=== PATIENT | female | born 1985 | race Caucasian/White ===

== ENCOUNTER → 2023-04-02 13:51 | Outpatient (CLI) | payer BC, SELFPAY ==
--- NOTE | 2023-04-02 13:52 | US_ITS ---
PROCEDURE: US TRANSVAGINAL CLINICAL INDICATION: pelvic pain COMPARISON: No exams were available for comparison FINDINGS: Transvaginal sonographic images of the pelvis were obtained. UTERUS: 8cm x 5cmx 5cm with a combined endometrial thickness of 7.8mm. . There is a 10 mm nabothian cyst. There are 2 small fibroids Fibroid 1 measures 0.6 cm x 0.3 cm x 0.5 cm anterior fibroid. Fibroid 2 measures 1.1 cm by 1.7 cm x 1.3 cm fundal fibroid. LEFT OVARY: 1xoy2val8.5cm with a volume of 3.1ml.There is and 8 mm follicle. RIGHT OVARY: 3cmx [id number] with a volume of 3.3ml. There is an 11 mm dominant follicle. There are several other small follicles. Both ovaries are seen and appear normal. Doppler flow to both ovaries are seen. There is no fluid in the cul-de-sac. IMPRESSION: 1. Anteverted uterus. There are 2 small fibroids measuring 0.6 cm and 1.7 cm. 2. Both ovaries are seen and appear normal. Each have several follicles. 3. No fluid in the cul-de-sac. Dictated by: Catrachito Hess MD 04/02/2023 18:57 Catrachito Hess MD in [place] 04/02/2023 18:57
== END ==
PROVIDERS: PCP Family Medicine; Visit Provider Obstetrics & Gynecology
DX: R10.2 Pelvic and perineal pain (principal); G89.29 Other chronic pain
CPT/HCPCS: 76830

== ENCOUNTER 2024-04-29 15:50 | Outpatient (CLI) | payer BC, SELFPAY | END 2024-04-29 23:59 | disposition home or self-care (01) | LOC: LAB.DROPOF 04-30 10:04 | PROVIDERS: PCP Obstetrics & Gynecology; Visit Provider Obstetrics & Gynecology | DX: Z34.90 Encounter for supervision of normal pregnancy, unspecified, unspecified trimester (principal) | CPT/HCPCS: 87086 ==

== ENCOUNTER 2024-05-21 16:31 | Outpatient (CLI) | payer BC, SELFPAY ==
[2024-05-21 17:02] LABS: Basophils % 0.3 % (0.1-2.0); Eosinophils # 0.1 K/mm3 (0.0-0.4); Eosinophils % 0.6 % (0.1-12.0); Hematocrit 39.1 % (37.0-47.0); Hemoglobin 12.9 g/dL (12.2-16.2); Lymphocytes # 2.2 K/mm3 (0.7-4.5); Lymphocytes % 23.3 % (10-50); Mean Corpuscular HGB Conc 33.1 g/dL (31.8-35.4); Mean Corpuscular Hemoglobin 31.7 pg (27.0-31.2); Mean Corpuscular Volume 95.9 fl (81-99); Mean Platelet Volume 7.7 fl (7.4-10.4); Monocytes # 0.4 K/mm3 (0.1-1.0); Monocytes % 4.7 % (1.7-9.3); Neutrophils # 6.7 K/mm3 (1.8-7.8); Platelet Count 225 K/mm3 (142-424); Red Blood Count 4.07 M/mm3 (4.20-5.40); Red Cell Distribution Width 14.4 % (11.5-17.5); White Blood Count 9.4 K/mm3 (4.8-10.8)
[2024-05-21 18:16] LABS: Thyroid Stimulating Hormone 4.36 uIU/mL (0.465-4.68)
[2024-05-22 10:44] LABS: HIV (1&2) Antibody Rapid NONREACTIVE (NONREACTIVE)
[2024-05-23 07:12] LABS: HCV Ab Non Reactive (Non Reactive); Hepatitis B Surface Antigen Negative (Negative)
[2024-05-23 08:17] LABS: Rubella Antibodies, IgG 2.69 index (Immune >0.99)
[2024-05-23 13:17] LABS: Rapid Plasma Reagin Ab Titer Non Reactive titer (NonRea<1:1)
== END 2024-05-21 23:59 | disposition home or self-care (01) ==
LOC: LAB 16:31
PROVIDERS: PCP Family Medicine; Visit Provider Obstetrics & Gynecology
DX: Z34.90 Encounter for supervision of normal pregnancy, unspecified, unspecified trimester (principal); E03.9 Hypothyroidism, unspecified
CPT/HCPCS: 86703; 36415; 84443; 85025; 86593; 86762; 86803; 86850; 87340

== ENCOUNTER 2024-05-28 14:45 | Outpatient (CLI) | payer BC, SELFPAY ==
[2024-05-28 15:03] LABS: Basophils % 0.4 % (0.1-2.0); Eosinophils # 0.1 K/mm3 (0.0-0.4); Hematocrit 38.9 % (37.0-47.0); Hemoglobin 12.8 g/dL (12.2-16.2); Lymphocytes % 20.2 % (10-50); Mean Corpuscular HGB Conc 32.9 g/dL (31.8-35.4); Mean Corpuscular Hemoglobin 31.8 pg (27.0-31.2); Mean Corpuscular Volume 96.4 fl (81-99); Mean Platelet Volume 8.4 fl (7.4-10.4); Monocytes # 0.5 K/mm3 (0.1-1.0); Monocytes % 4.5 % (1.7-9.3); Neutrophils # 7.4 K/mm3 (1.8-7.8); Platelet Count 244 K/mm3 (142-424); Red Blood Count 4.03 M/mm3 (4.20-5.40); Red Cell Distribution Width 14.1 % (11.5-17.5)
[2024-05-28 15:41] LABS: Alanine Aminotransferase 19 U/L (12-78); Albumin Level 3.8 g/dl (3.5-5.0); Alkaline Phosphatase 60 U/L (38-126); Aspartate Amino Transferase 22 U/L (14-36); Bilirubin,Direct 0.2 mg/dl (0.0-0.4); Bilirubin,Indirect 0.1 mg/dL (0.0-0.9); Bilirubin,Total 0.3 mg/dl (0.2-1.3); Bilirubin,Unconjugated 0.1 mg/dL (0.0-1.1); Blood Urea Nitrogen 9 mg/dl (7-17); Calcium 9.1 mg/dl (8.4-10.2); Carbon Dioxide 22 mmol/L (22.0-30.0); Chloride 107 mmol/L (98-107); Chol/HDL Ratio 2.1 (1-3.5); Cholesterol 179 mg/dl (140-200); Estimated Glomerular Filt Rate 137 ml/min (>60); GFR (African American) 166 ML/MIN (>60); Glucose 97 mg/dl (74-100); HDL Cholesterol 85 mg/dl (40-60); Sodium 136 mmol/L (136-145); Total Protein,Serum 6.7 g/dl (6.3-8.2); Triglycerides 115 mg/dl (30-150); VLDL Cholesterol 23 mg/dL (0-40)
[2024-05-28 15:47] LABS: D-Dimer 0.46 ug/mL (0.0-0.5)
[2024-05-28 15:52] LABS: Direct LDL Cholesterol 76.51 mg/dL (100-129)
[2024-05-28 15:58] LABS: Free T4 (Free Thyroxine) 1.08 ng/dl (0.78-2.19)
[2024-05-28 16:12] LABS: Thyroid Stimulating Hormone 6.87 uIU/mL (0.465-4.68)
== END 2024-05-28 23:59 | disposition home or self-care (01) ==
PROVIDERS: PCP Family Medicine; Visit Provider Internal Medicine
DX: R42 Dizziness and giddiness (principal); R00.2 Palpitations; R06.09 Other forms of dyspnea; R07.89 Other chest pain; E03.9 Hypothyroidism, unspecified; O99.281 Endocrine, nutritional and metabolic diseases complicating pregnancy, first trimester; Z3A.13 13 weeks gestation of pregnancy; Z86.39 Personal history of other endocrine, nutritional and metabolic disease
CPT/HCPCS: 36415; 80048; 80061; 80076; 84439; 84443; 85025; 85378; 93270

== ENCOUNTER 2024-06-09 11:11 | Outpatient (CLI) | payer BC, SELFPAY ==
--- NOTE | 2024-06-09 11:14 | CA_ITS ---
APPROVED REPORT EXAM: Comprehensive 2D, Doppler, and color-flow Echocardiogram Industrial Custodian: Darya Echols CRT Ht: 5 ft 4 in Wt: 212lbs BSA: 2.01 BP: 121/54 mmHg Indications: 14 WKS , GERD, CP, SMOKER, PALP, SOB, FATIGUE 2D Dimensions Left Atrium 3.66 cm LVEF (Severino's) 61.50 % LVOT 1.80 cm (M/F) 1.5-2.5 LV Volume 93.40 mL LA Volume 39.30 mL LA Volume Index 19.60 mL/m2 (M/F) 16-34 EF AP4 65.60 % EF AP2 56.3 % EF BP 61.5 % GL Strain -19.9 % M-Mode Dimensions RVDd 2.20 cm (0.9-2.6) LVDd 4.84 cm (3.5-5.7) Ao Diam 3.28 cm (2.0-3.7) LVDs 2.79 cm (3.5-5.7) IVSd 1.39 cm (0.6-1.1) PWd 0.93 cm (0.6-1.1) EF (Teich) 73.30% FS 42.40% EDV (Teich) 109.60 mL TAPSE 2.67 (<1.7) ESV (Teich) 29.30 mL LV Diastology E Decel Time 258 (160-240 msec) E/A Ratio 1.13 MED E' 10.5 (>= 7 cm/sec) MED A' 10.10 cm/s E'/MED E' Ratio 8.26 (<= 14) LAT E' 14.9 (>= 10 cm/sec) LAT A' 13.00 cm/s E/LAT E' Ratio 5.82 (<= 14) Aortic Valve AoV Peak Dimas. 155.0 (50-130 cm/s) AO Peak GR. 9.60 mmHg Mitral Valve MV E Max Dimas. 87.0 (40-130 cm/s) MV A Velocity 77.0 (40-130 cm/s) E/A Ratio 1.13 MV Decel. Time 258 (160-240 ms) Tricuspid Valve TR P. Velocity 309.00 cm/s RAP Estimate 10.00 mmHg RVSP 48.20 mmHg Left Ventricle The left ventricle is normal size. The left ventricular systolic function is normal. The left ventricular ejection fraction is within the normal range. There is normal left ventricular wall thickness. There is normal LV segmental wall motion. The left ventricular diastolic function is normal. LVEF is 60%. Right Ventricle The right ventricle is normal size. The right ventricular systolic function is normal. Atria The left atrium size is normal. The right atrium size is normal. There is no Doppler evidence of interatrial shunt. Aortic Valve The aortic valve opens well. There is no aortic valvular stenosis. No aortic regurgitation. Mitral Valve The mitral valve is normal in structure. No evidence of mitral valve stenosis. Mild mitral regurgitation. Tricuspid Valve Tricuspid valve is grossly normal in structure and function. Trace tricuspid regurgitation. There is insufficient TR jet to estimate RVSP. Pulmonic Valve The pulmonary valve is normal in structure. Trace pulmonic regurgitation. Great Vessels The aortic root is normal in size. The ascending aorta is normal in size. IVC is normal in size and collapses >50% with inspiration. Pericardium There is no pericardial effusion. Other Information Study Quality: Adequate Conclusion Normal biventricular systolic function. Mild MR. Electronically signed by : Celina De La Rosa MD 06/09/2024 12:25:32
== END 2024-06-09 23:59 | disposition home or self-care (01) ==
LOC: RT 11:11
PROVIDERS: PCP Family Medicine; Visit Provider Internal Medicine
DX: R42 Dizziness and giddiness (principal); R00.2 Palpitations; R06.09 Other forms of dyspnea; R07.89 Other chest pain
CPT/HCPCS: 93306

== ENCOUNTER 2024-07-23 13:50 | Outpatient (CLI) | payer BC, SELFPAY ==
--- NOTE | 2024-07-23 13:50 | US_ITS ---
PROCEDURE: US OB /MATERNAL DETAIL CLINICAL INDICATION: 20 WEEK OB Complete-Anatomy Scan COMPARISON: No exams were available for comparison FINDINGS: Transabdominal sonographic images of the pelvis were obtained. From her established due date she is 20 weeks 4 days. Single viable intrauterine gestation. Breech position. Placenta: Anteriorplacenta grade 1. There is an average amount of fluid. The cervix appears satisfactory. Closed and measuring 6.6 cm in length. Complete survey performed and was unremarkable on the submitted images as in PACS. No discrete anomalies identified on survey imaging by technologist. Active fetus. Three-vessel cord with satisfactory umbilical cord insertion. 4- chamber heart noted. Situs, aortic arch, LVOT, RVOT, three-vessel view appear normal. Survey of brain & ventricles Unremarkable. Cerebellum, thalamus, choroid plexus, cisterna magna appear normal. Face and neck survey unremarkable. Profile, nasion, lips and nose appeared normal. Diaphragm and chest views unremarkable. Abdomen: Both kidneys noted and unremarkable. Stomach and bladder noted and satisfactory. Spine: Survey of the spine satisfactory with no anomalies identified nor imaged. Cervical, thoracic, lower spine appear normal. We had difficulty getting good spinal views due to position. Both arms and legs noted. Amniotic Fluid: Adequate. MVP 7.41 cm Measurements: Average ultrasound age 21weeks 2days. Estimated due date by ultrasound age 0312/01/2024. Estimated weight 414g BPD = 21weeks 0 days HC = 21weeks 0 days AC = 21weeks 5days FL = 21weeks 0 days Growth Percentile= 83 Heart Rate = 146bpm Cerebellum = 20weeks 1day Humerus = 22weeks 4days HC/AC is 1.12 FL/BPD is 0.71 FL/AC is 0.21 IMPRESSION: 1. Viable fetus in the breech presentation with an anterior placenta grade 1. 2. The fluid is within normal limits MVP 7.41 cm. 3. Anatomical scan appears normal. 4. Spinal views were incomplete due to position. Suggest repeat scan in 2-3 weeks. 5. biometry is consistent with dates. Dictated by: Catrachito Hess MD 07/23/2024 14:53 Catrachito Hess MD in [facility] 07/23/2024 14:53
== END 2024-07-23 23:59 | disposition home or self-care (01) ==
LOC: RAD 13:50
PROVIDERS: PCP Family Medicine; Visit Provider Obstetrics & Gynecology
DX: Z36.3 Encounter for antenatal screening for malformations (principal); O99.282 Endocrine, nutritional and metabolic diseases complicating pregnancy, second trimester; E03.9 Hypothyroidism, unspecified; Z3A.20 20 weeks gestation of pregnancy
CPT/HCPCS: 76811

== ENCOUNTER 2024-08-20 12:46 | Outpatient (CLI) | payer BC, SELFPAY ==
--- NOTE | 2024-08-20 12:47 | US_ITS ---
PROCEDURE: US OB >= 14 WEEKS FETUS CLINICAL INDICATION: incomplete spine views COMPARISON: US US OB /MATERNAL DETAIL from 07/23/2024 FINDINGS: Transabdominal sonographic images of the pelvis were obtained. The following parameters are obtained: From her established due date she is 24weeks 4days Viable fetus in the cephalic presentation with an anterior placenta grade 1. The cervix measures 4.5 cm heart rate: 146bpm bpm. BPD: 25weeks 0 days HC: 25weeks 2days AC: 26weeks 1day FL: 25weeks 4days HC/AC: 1.07 FL/BPD: 0.76 FL/AC: 0.21 Growth percentile: 88 Amniotic fluid : MVP 8.4 cm No obvious anomalies evident. profile seen, stomach, bladder, kidneys, three-vessel cord, four chamber heart appear normal. spine: Cervical, thoracic and lower spine appear normal. IMPRESSION: 1. Viable fetus in the cephalic presentation with an anterior placenta grade 1. 2. The fluid within is within normal limits . 3. Limited anatomical scan appears normal. The spine is seen today and appears normal. 4. There has been good interval growth. Dictated by: Catrachito Hess MD 08/21/2024 06:36 Catrachito Hess MD in [place] 08/21/2024 06:36
== END 2024-08-20 23:59 | disposition home or self-care (01) ==
LOC: RAD 12:47
PROVIDERS: PCP Obstetrics & Gynecology; Visit Provider Obstetrics & Gynecology
DX: Z34.92 Encounter for supervision of normal pregnancy, unspecified, second trimester (principal); Z3A.24 24 weeks gestation of pregnancy
CPT/HCPCS: 76805

== ENCOUNTER 2024-09-14 10:30 | Outpatient (CLI) | payer BC, SELFPAY | END 2024-09-14 23:59 | disposition home or self-care (01) | LOC: LAB 10:33 | PROVIDERS: PCP Family Medicine; Visit Provider Obstetrics & Gynecology | DX: O99.280 Endocrine, nutritional and metabolic diseases complicating pregnancy, unspecified trimester (principal); E03.9 Hypothyroidism, unspecified | CPT/HCPCS: 36415; 84443 ==

== ENCOUNTER 2024-09-30 14:58 | Outpatient (CLI) | payer MEDICAID, SELFPAY ==
[2024-09-30 16:30] LABS: Basophils % 0.2 % (0.1-2.0); Eosinophils # 0.2 K/mm3 (0.0-0.4); Eosinophils % 1.9 % (0.1-12.0); Hemoglobin 11.2 g/dL (12.2-16.2); Lymphocytes # 1.7 K/mm3 (0.7-4.5); Lymphocytes % 16.7 % (10-50); Mean Corpuscular HGB Conc 33.9 g/dL (31.8-35.4); Mean Corpuscular Hemoglobin 32.1 pg (27.0-31.2); Mean Corpuscular Volume 94.6 fl (81-99); Mean Platelet Volume 9.7 fl (7.4-10.4); Monocytes # 0.6 K/mm3 (0.1-1.0); Monocytes % 5.5 % (1.7-9.3); Neutrophils # 7.8 K/mm3 (1.8-7.8); Platelet Count 192 K/mm3 (142-424); Red Blood Count 3.49 M/mm3 (4.20-5.40); Red Cell Distribution Width 13.5 % (11.5-17.5); White Blood Count 10.4 K/mm3 (4.8-10.8)
[2024-09-30 16:43] LABS: Glucose 1 Hour 167 mg/dL (74-100)
[2024-09-30 17:32] LABS: Thyroid Stimulating Hormone 5.72 uIU/mL (0.465-4.68)
[2024-10-01 15:49] LABS: RPR W/RFX Titers Nonreactive (Nonreactive)
== END 2024-09-30 23:59 | disposition home or self-care (01) ==
LOC: LAB 14:59
PROVIDERS: PCP Family Medicine; Visit Provider Obstetrics & Gynecology
DX: O99.280 Endocrine, nutritional and metabolic diseases complicating pregnancy, unspecified trimester (principal); E03.9 Hypothyroidism, unspecified; Z86.39 Personal history of other endocrine, nutritional and metabolic disease
CPT/HCPCS: 36415; 82947; 84443; 85025; 86592

== ENCOUNTER 2024-10-02 09:24 | Outpatient (CLI) | payer MEDICAID, SELFPAY ==
[2024-10-02 09:58] LABS: Glucose,Fasting 98 mg/dl (74-100)
[2024-10-02 12:13] LABS: Glucose 1 Hour 195 mg/dL (74-100)
[2024-10-02 12:33] LABS: Glucose 2 Hour 185 mg/dL (74-100)
[2024-10-02 13:32] LABS: Glucose 3 Hour 55 mg/dL (74-100)
== END 2024-10-02 23:59 | disposition home or self-care (01) ==
LOC: LAB 09:26
PROVIDERS: PCP Family Medicine; Visit Provider Obstetrics & Gynecology
DX: E03.9 Hypothyroidism, unspecified (principal); O09.32 Supervision of pregnancy with insufficient antenatal care, second trimester
CPT/HCPCS: 36415; 82951

== ENCOUNTER 2024-10-07 09:02 | Outpatient (CLI) | payer MEDICAID, SELFPAY ==
--- NOTE | 2024-10-07 09:03 | US_ITS ---
PROCEDURE: US OB FOLLOW UP CLINICAL INDICATION: CHTN Hypothyroidism-US OB FU with KIMBERLY SD Ratio COMPARISON: US US OB /MATERNAL DETAIL from 07/23/2024 US US OB >= 14 WEEKS FETUS from 08/20/2024 FINDINGS: Transabdominal sonographic images of the uterus were obtained. From her established due date she is 31weeks 3days. The following parameters are obtained: Viable Fetus in the breech presentation with and anterior placenta grade 2. There appears to be a placental Cloud. Average ultrasound age is 32weeks 5days Estimated weight 2,056g Measurements: heart Rate = 142bpm BPD = 32weeks 2days, 63 percentile HC = 32weeks 6days, 49 percentile AC = 33weeks 6days, 96 percentile FL = 31weeks 3days, 36 percentile HC/AC is 1 FL/BPD is 0.75 FL/AC is 0.2 83 percentile Amniotic fluid index: 17.21cm, MVP 5.67 cm. Doppler evaluation of the umbilical artery: SD ratio: 2.09-2.13 Resistive index: 0.52 No obvious anomalies evident.Kidneys, profile, stomach, bladder, four-chamber heart, three-vessel cord appear normal. kidneys: There is 5.7 mm unilateral renal pelvis dilation. IMPRESSION: 1. Viable fetus in the breech presentation with an anterior placenta grade 2. There is a placental Cloud. 2. The fluid is within normal limits with amniotic fluid index 17.21 cm, MVP 5.67 cm. 3. There has been good interval growth with the fetus currently 83rd percentile. 4. Limited anatomical scan appears normal. 5. There is unilateral renal pelvis dilation measuring 5.7 mm. 6. SD ratio is normal 2.09-2.13. Dictated by: Catrachito Hess MD 10/07/2024 14:42 Catrachito Hess MD in [facility] 10/07/2024 14:42
== END 2024-10-07 23:59 | disposition home or self-care (01) ==
LOC: RAD 09:03
PROVIDERS: PCP Obstetrics & Gynecology; Visit Provider Obstetrics & Gynecology
DX: O09.33 Supervision of pregnancy with insufficient antenatal care, third trimester (principal); O10.913 Unspecified pre-existing hypertension complicating pregnancy, third trimester; O99.283 Endocrine, nutritional and metabolic diseases complicating pregnancy, third trimester; O99.333 Smoking (tobacco) complicating pregnancy, third trimester; O99.323 Drug use complicating pregnancy, third trimester; Z3A.33 33 weeks gestation of pregnancy; E03.9 Hypothyroidism, unspecified; F12.90 Cannabis use, unspecified, uncomplicated
CPT/HCPCS: 76816; 76820

== ENCOUNTER 2024-10-15 09:52 | Outpatient (CLI) | payer MEDICAID, SELFPAY ==
--- NOTE | 2024-10-15 09:53 | US_ITS ---
PROCEDURE: US OB BIOPHYSICAL PROFILE CLINICAL INDICATION: Gest Diabetes , Chronic Hypertension in COMPARISON: US US OB /MATERNAL DETAIL from 07/23/2024 US US OB >= 14 WEEKS FETUS from 08/20/2024 US OB FOLLOW UP from 10/07/2024 FINDINGS: Transabdominal sonographic images of the uterus were obtained. From her established due date she is 32weeks 4days. The following parameters are obtained: Viable Fetus in the cephalic presentation with an anterior placenta grade 2. The cervix measures 3.12 cm. Measurements: heart Rate = 140bpm Amniotic fluid index: 13.2cm, MVP 5.43 cm Qualitative AFV:2 Breathing movements: 2 Gross Body Movements: 2 Tone: 2 Biophysical profile score: 8 No obvious anomalies evident.Kidneys, stomach, bladder, four-chamber heart, three-vessel cord appear normal. There continues to be mild unilateral renal pelvis dilation measuring 6.1 mm. IMPRESSION: 1. Viable fetus in the cephalic presentation with an anterior placenta grade 2. 2. The fluid is within normal limits with amniotic fluid index 13.2 cm, MVP 5.43 cm. 3. Biophysical profile is 8/8 with good breathing movement and movement seen. 4. Limited anatomical scan appears normal. 5. There continues to be mild unilateral renal pelvis dilation measuring 6.1 mm today. 6. Suggest follow-up for growth, biophysical profile in 2 weeks time. Dictated by: Catrachito Hess MD 10/15/2024 15:52 Catrachito Hess MD in [place] 10/15/2024 15:52
== END 2024-10-15 23:59 | disposition home or self-care (01) ==
LOC: RAD 09:53
PROVIDERS: PCP Obstetrics & Gynecology; Visit Provider Obstetrics & Gynecology
DX: O24.415 Gestational diabetes mellitus in pregnancy, controlled by oral hypoglycemic drugs (principal); O10.913 Unspecified pre-existing hypertension complicating pregnancy, third trimester; O99.323 Drug use complicating pregnancy, third trimester; Z3A.32 32 weeks gestation of pregnancy
CPT/HCPCS: 76819

== ENCOUNTER 2024-10-22 12:52 | Outpatient (CLI) | payer MEDICAID, SELFPAY ==
--- NOTE | 2024-10-22 12:52 | US_ITS ---
PROCEDURE: US OB BIOPHYSICAL PROFILE CLINICAL INDICATION: US OB BPP with KIMBERLY Gestational diabetes, chronic hypertension COMPARISON: US US OB /MATERNAL DETAIL from 07/23/2024 US US OB >= 14 WEEKS FETUS from 08/20/2024 US US OB FOLLOW UP from 10/07/2024 US US OB BIOPHYSICAL PROFILE from 10/15/2024 FINDINGS: Transabdominal sonographic images of the uterus were obtained. From her established due date she is 33weeks 4days. The following parameters are obtained: Viable Fetus in the cephalic presentation with an anterior placenta grade 2. Measurements: heart Rate = 149bpm Amniotic fluid index: 14.62cm, MVP 5.75 cm Qualitative AFV:2 Breathing movements: 2 Gross Body Movements: 2 Tone: 2 Biophysical profile score: 8 No obvious anomalies evident.Kidneys, profile, stomach, bladder, four-chamber heart, three-vessel cord appear normal. There is unilateral renal pelvis dilation measuring 6.2 mm. IMPRESSION: 1. Viable fetus in the cephalic presentation with an anterior placenta grade 2. 2. The fluid is within normal limits with an amniotic fluid index of 14.62 cm, MVP 5.75 cm. 3. Biophysical profile is 8/8 with good breathing movement and movement seen. 4. Limited anatomical scan appears normal. 5. There continues to be unilateral renal pelvis dilation measuring 6.2 mm. Dictated by: Catrachito Hess MD 10/23/2024 09:28 Catrachito Hess MD in [place] 10/23/2024 09:28
== END 2024-10-22 23:59 | disposition home or self-care (01) ==
LOC: RAD 12:52
PROVIDERS: PCP Obstetrics & Gynecology; Visit Provider Obstetrics & Gynecology
DX: O24.415 Gestational diabetes mellitus in pregnancy, controlled by oral hypoglycemic drugs (principal); O10.913 Unspecified pre-existing hypertension complicating pregnancy, third trimester; O99.323 Drug use complicating pregnancy, third trimester; Z3A.33 33 weeks gestation of pregnancy
CPT/HCPCS: 76819

== ENCOUNTER 2024-10-30 09:52 | Outpatient (CLI) | payer MEDICAID, SELFPAY ==
--- NOTE | 2024-10-30 09:52 | US_ITS ---
PROCEDURE: US OB BIOPHYSICAL PROFILE CLINICAL INDICATION: US OB BPP with KIMBERLY COMPARISON: US US OB /MATERNAL DETAIL from 07/23/2024 US US OB >= 14 WEEKS FETUS from 08/20/2024 US US OB FOLLOW UP from 10/07/2024 US OB BIOPHYSICAL PROFILE from 10/15/2024 US OB BIOPHYSICAL PROFILE from 10/22/2024 FINDINGS: Transabdominal sonographic images of the uterus were obtained. From her established due date she is 34weeks 5days. The following parameters are obtained: Viable Fetus in the cephalic presentation with an anterior placenta grade 2. Average ultrasound age is 36weeks 6days Estimated weight 3,182g, 7 lb 0 oz Cervix measures 3.38 cm. Measurements: heart Rate = 132bpm BPD = 35weeks 4days, 74 percentile HC = 37weeks 4days, 83 percentile AC = 38weeks 4days, >98 percentile FL = 35weeks 3days, 58 percentile HC/AC is 0.95 FL/BPD is 0.78 FL/AC is 0.2 >98 percentile Amniotic fluid index: 8.84cm, MVP 3.90 cm. Qualitative AFV:2 Breathing movements: 2 Gross Body Movements: 2 Tone: 2 Biophysical profile score: 8 No obvious anomalies evident.Kidneys, bladder, stomach, four-chamber heart, three-vessel cord appear normal. There is moderate unilateral renal pelvis dilation measuring 8.6 mm. IMPRESSION: 1. Viable fetus in the cephalic presentation with an anterior placenta grade 2. 2. The fluid is within normal limits with an amniotic fluid index 8.84 cm, MVP 3.90 cm. 3. Biophysical profile is 8/8 with good breathing movement and movement seen today. 4. Fetus is currently large for gestational age >98 percentile with the abdominal circumference 4 weeks ahead. 5. Limited anatomical scan appears normal. 6. Today there is moderate unilateral renal pelvis dilation measuring 8.6 mm and this should be followed up post with the supply specialist. Dictated by: Catrachito Hess MD 10/31/2024 08:44 Catrachito Hess MD in [place] 10/31/2024 08:44
[2024-10-30 12:03] LABS: Thyroid Stimulating Hormone 0.88 uIU/mL (0.465-4.68)
== END 2024-10-30 23:59 | disposition home or self-care (01) ==
PROVIDERS: PCP Obstetrics & Gynecology; Visit Provider Obstetrics & Gynecology
DX: O24.415 Gestational diabetes mellitus in pregnancy, controlled by oral hypoglycemic drugs (principal); O99.323 Drug use complicating pregnancy, third trimester; O10.913 Unspecified pre-existing hypertension complicating pregnancy, third trimester; O99.283 Endocrine, nutritional and metabolic diseases complicating pregnancy, third trimester; Z3A.34 34 weeks gestation of pregnancy; E03.9 Hypothyroidism, unspecified; E07.9 Disorder of thyroid, unspecified
CPT/HCPCS: 36415; 76816; 76819; 84443

== ENCOUNTER 2024-11-09 09:45 | Outpatient (CLI) | payer MEDICAID, SELFPAY | END 2024-11-09 23:59 | disposition home or self-care (01) | LOC: LAB.DROPOF 11-10 16:34 | PROVIDERS: PCP Obstetrics & Gynecology; Visit Provider Obstetrics & Gynecology | DX: Z34.03 Encounter for supervision of normal first pregnancy, third trimester (principal) | CPT/HCPCS: 86403 ==

== ENCOUNTER 2024-11-12 09:00 | Outpatient (CLI) | payer MEDICAID, SELFPAY ==
--- NOTE | 2024-11-12 09:00 | US_ITS ---
PROCEDURE: US OB BIOPHYSICAL PROFILE CLINICAL INDICATION: GDM,GHTN,AMA COMPARISON: US US OB /MATERNAL DETAIL from 07/23/2024 US US OB >= 14 WEEKS FETUS from 08/20/2024 US OB FOLLOW UP from 10/07/2024 US OB BIOPHYSICAL PROFILE from 10/15/2024 US OB BIOPHYSICAL PROFILE from 10/22/2024 US OB BIOPHYSICAL PROFILE from 10/30/2024 FINDINGS: Transabdominal sonographic images of the uterus were obtained. From her established due date she is 36weeks 4days. The following parameters are obtained: Viable Fetus in the cephalic presentation with an anterior placenta grade 2. Average ultrasound age is 38weeks 0 days Estimated weight 3,576g, 7 lb 14 oz Cervix measures 4.06 cm. Measurements: heart Rate = 136bpm BPD = 36weeks 3days, 58 percentile HC = 38weeks 0 days, 54 percentile AC = 40weeks 1day, >98 percentile FL = 37weeks 1day, 61 percentile HC/AC is 0.92 FL/BPD is 0.81 FL/AC is 0.2 96 percentile Amniotic fluid index: 11.99cm, MVP 5.59 cm Qualitative AFV:2 Breathing movements: 2 Gross Body Movements: 2 Tone: 2 Biophysical profile score: 8 No obvious anomalies evident.Kidneys, profile, bladder, stomach, four-chamber heart, three-vessel cord appear normal. IMPRESSION: 1. Viable fetus in the cephalic presentation with an anterior placenta grade 2. 2. The fluid is within normal limits with an amniotic fluid index 11.99 cm, MVP 5.59 cm. 3. Biophysical profile /8 with good breathing movement and movement seen. 4. There has been good interval growth with the fetus currently 96 percentile. The abdominal circumference is greater than the 98th percentile and is 3-1/2 weeks ahead. 5. Limited anatomical scan appears normal. Dictated by: Catrachito Hess MD 11/12/2024 10:21 Catrachito Hess MD in [place] 11/12/2024 10:21
== END 2024-11-12 23:59 | disposition home or self-care (01) ==
LOC: RAD 09:00
PROVIDERS: PCP Family Medicine; Visit Provider Obstetrics & Gynecology
DX: O24.415 Gestational diabetes mellitus in pregnancy, controlled by oral hypoglycemic drugs (principal); O10.913 Unspecified pre-existing hypertension complicating pregnancy, third trimester; O32.1XX0 Maternal care for breech presentation, not applicable or unspecified; O99.323 Drug use complicating pregnancy, third trimester; Z3A.36 36 weeks gestation of pregnancy
CPT/HCPCS: 76816; 76819

== ENCOUNTER 2024-11-19 13:00 | Outpatient (CLI) | payer MEDICAID, SELFPAY ==
--- NOTE | 2024-11-19 13:01 | US_ITS ---
PROCEDURE: US OB BIOPHYSICAL PROFILE CLINICAL INDICATION: LGA/GDM COMPARISON: US US OB /MATERNAL DETAIL from 07/23/2024 US OB >= 14 WEEKS FETUS from 08/20/2024 US OB FOLLOW UP from 10/07/2024 US OB BIOPHYSICAL PROFILE from 10/15/2024 [facility] OB BIOPHYSICAL PROFILE from 10/22/2024 [facility] OB BIOPHYSICAL PROFILE from 10/30/2024 [facility] OB BIOPHYSICAL PROFILE from 11/12/2024 FINDINGS: Transabdominal sonographic images of the uterus were obtained. From her established due date she is 37weeks 4days. The following parameters are obtained: Viable Fetus in the cephalic presentation with an anterior placenta grade 2. Cervix measures 3.51 cm. Measurements: heart Rate = 136bpm Amniotic fluid index: 14.56cm, MVP 5.91 cm. Qualitative AFV:2 Breathing movements: 2 Gross Body Movements: 2 Tone: 2 Biophysical profile score: 8 No obvious anomalies evident.Kidneys, profile, stomach, bladder, four-chamber heart, three-vessel cord appear normal. IMPRESSION: 1. Viable fetus in the cephalic presentation with an anterior placenta grade 2. 2. The fluid is within normal limits with an amniotic fluid index 14.56 cm, MVP 5.91 cm. 3. Biophysical profile is 8/8 with good breathing movement and movement seen. 4. Limited anatomical scan appears normal. 5. The previously described renal pelvis dilation was not measured today. Dictated by: Catrachito Hess MD 11/19/2024 15:41 Catrachito Hess MD in [place] 11/19/2024 15:41
== END 2024-11-19 23:59 | disposition home or self-care (01) ==
LOC: RAD 13:01
PROVIDERS: Visit Provider Obstetrics & Gynecology
DX: O24.415 Gestational diabetes mellitus in pregnancy, controlled by oral hypoglycemic drugs (principal); O09.33 Supervision of pregnancy with insufficient antenatal care, third trimester; O99.323 Drug use complicating pregnancy, third trimester; O10.913 Unspecified pre-existing hypertension complicating pregnancy, third trimester; Z3A.37 37 weeks gestation of pregnancy; F12.90 Cannabis use, unspecified, uncomplicated
CPT/HCPCS: 76819

== ENCOUNTER 2024-11-22 16:08 | Inpatient (IN) | payer MEDICAID, SELFPAY ==
[2024-11-22 16:14] VITALS: BMI 37.4
[2024-11-22 16:50] VITALS: BMI 37.4
[2024-11-22 16:54] LABS: Basophils % 0.3 % (0.1-2.0); Eosinophils # 0.1 K/mm3 (0.0-0.4); Eosinophils % 1.3 % (0.1-12.0); Hemoglobin 10.9 g/dL (12.2-16.2); Lymphocytes # 1.8 K/mm3 (0.7-4.5); Lymphocytes % 19.1 % (10-50); Mean Corpuscular HGB Conc 34.1 g/dL (31.8-35.4); Mean Corpuscular Hemoglobin 31.6 pg (27.0-31.2); Mean Corpuscular Volume 92.8 fl (81-99); Monocytes # 0.6 K/mm3 (0.1-1.0); Monocytes % 6.4 % (1.7-9.3); Neutrophils # 6.9 K/mm3 (1.8-7.8); Neutrophils % 72.1 % (37.0-80.0); Platelet Count 191 K/mm3 (142-424); Red Blood Count 3.45 M/mm3 (4.20-5.40); Red Cell Distribution Width 14.1 % (11.5-17.5); White Blood Count 9.6 K/mm3 (4.8-10.8)
[2024-11-22] MEDS: miSOPROStol 100MCG TABLET 50 MCG PO (17:12)
[2024-11-22 17:15] LABS: Microscopic, Urine URINE MICROSCOPIC (MICROSCOPIC)
[2024-11-22 17:37] LABS: Glucose,Random 107 mg/dL (74-100)
[2024-11-22 18:18] LABS: Appearance,Urine Slightly Cloudy (Clear); Bilirubin,Urine Negative (Negative); Blood, Urine Negative (Negative); Color,Urine Yellow (Yellow); Glucose,Urine (UA) Negative (Negative); Ketones,Urine Negative (Negative); Leukocyte Esterase,Urine Negative (Negative); Nitrate,Urine Negative (Negative); PH,Urine 6.5 (5.0-8.5); Protein,Urine Trace (Negative); Urobilinogen,Urine 0.2 EU/dl (0.2)
[2024-11-22 18:31] LABS: Bacteria,Urine 4+ /lpf; RBC,Urine Occasional #/hpf (0-3); WBC,Urine 20-50 #/hpf (0-3)
[2024-11-22] MEDS: LACTATED RINGERS 1000ML 1,000 ML 250 ML IV (19:52)
[2024-11-22] MEDS: LABETALOL 100MG TABLET 200 MG PO (20:37)
[2024-11-22] MEDS: ONDANSETRON 4MG/2ML VIAL 4 MG IV (20:37)
[2024-11-22] MEDS: BUTORPHANOL TARTRATE 1 MG/ML VIAL IV (20:37)
[2024-11-22 21:10] LABS: Barbiturates Screen,Urine Negative ng/ml (<200)
[2024-11-22 21:11] LABS: Benzodiazepines Screen,Urine Negative ng/ml (<200)
[2024-11-22 21:12] LABS: Amphetamine/Metha Screen,Urine Negative ng/ml (<1000); Cannabinoid Screen,Urine Negative ng/ml (<50)
[2024-11-22 21:13] LABS: Cocaine Screen,Urine Negative ng/ml (<300)
[2024-11-22 21:14] LABS: Methadone Screen,Urine Negative ng/ml (<300); Opiate Screen,Urine Negative ng/ml (<300)
[2024-11-22 21:15] LABS: Phencyclidine Screen,Urine Negative ng/ml (<25)
[2024-11-22 21:18] LABS: POC Glucose,Bedside 117 (70-110)
[2024-11-23] MEDS: BUTORPHANOL TARTRATE 1 MG/ML VIAL IV (00:07)
[2024-11-23 00:58] LABS: POC Glucose,Bedside 110 (70-110)
[2024-11-23] MEDS: OXYTOCIN/RINGERS LACTATE 30 UNITS/500 ML BAG IV (05:04)
[2024-11-23] MEDS: DEXTROSE 5%-LACTATED RINGERS 1,000 ML 125 ML IV (05:05)
[2024-11-23 05:36] LABS: POC Glucose,Bedside 96 (70-110)
--- NOTE | 2024-11-23 08:56 | EXP.OB.APHP ---
OB - H&P: HPI Antepartum History of Present Illness Chief complaint: scheduled induction of labor History of present illness: Ms Fani Samaniego is a 39 yo at 38w1d who presents to [facility] L&D for scheduled induction of labor secondary to CHTN and GDMA2. is also complicated by AMA, hypothyroidism, marijuana use, tobacco use and LGA baby. She had limited care in the second trimester but good care in the third trimester. She is taking Labetalol 200 mg q 12 hours, metformin 500 mg PO BID, 10 units insulin at bedtime and levothyroxine 200 mcg daily. Last TSH 0.887 on 10/30/24. Baby is active. No vaginal bleeding or leakage of fluid. History of Present Criteria for establishing EDC:: LMP confirmed by 1st trimester US Ultrasounds: normal mid trimester US Obstetrical complications: gestational diabetes Medical complications: other (chronic hypertension, hypothyroidism) Labs Blood type: O (+) positive Rubella: immune RPR/VDRL: nonreactive GBS status: negative HBsAG: negative PFSH PFSH Disclaimer: The information contained in this section may have been updated after the patient was seen, as this information can be updated by other users. Medical History (Updated 11/23/24 @ 09:08 by Rubi Cooper DO) Category II heart rate tracing during labor and delivery Request for sterilization LGA (large for gestational age) fetus Thyroid disease affecting Gestational diabetes mellitus (GDM) controlled on oral hypoglycemic drug, antepartum Drug use complicating Chronic hypertension in Limited care in second trimester Dizziness Palpitations GERD (gastroesophageal reflux disease) Dyspnea Marijuana use during Nausea and vomiting in Tobacco use affecting , antepartum Advanced maternal age (AMA), 40 years or greater Hypothyroidism affecting Vaginal odor Anorgasmia of female Menorrhagia Dysmenorrhea Uterine fibroid Chronic pelvic pain in female Surgical History H/O dilation and curettage Family History Other Alcoholism Hypertension Kidney disease Substance abuse Thyroid disorder Social History (Updated 11/22/24 @ 16:24 by Veronica Dalton RN) Smoking Status: Current every day smoker alcohol intake: never substance use type: former substance user, opiates and painkillers current occupational status: other Travel in the last 8 weeks: None Have you lived/traveled outside US in past 30 days?: No Contact w/someone who lives/traveled outside US past 30 days?: No Exposure to someone with infectious disease in past 14 days?: No Do you have a fever (greater than 100.4 F or 38 C)?: No Have you tested positive for COVID-19: No Exposed to someone with COVID-19 in past 14 days?: No Do you have a sore throat?: No Do you have a cough?: No Do you have any weakness?: No Are you experiencing any nausea/vomitting?: No Do you have any diarrhea?: No Are you experiencing any unusual bleeding?: No Do you have any muscle aches/pain?: No Do you have any abdominal pain?: No Are you experiencing loss of taste or smell?: No Other Medical History Have you received the Flu Vaccine for this season: No Have you received the Pneumonia Vaccine: No Review of Systems Review of Systems Review of systems:: pertinent systems reviewed and negative unless documented below *Musculoskeletal Comments: + restless legs, charley horses Psychiatric Comments: + insomnia Meds Home Medications and Allergies Home Medications ?Medication ?Instructions ?Recorded ?Confirmed ?Type cholecalciferol (vitamin D3) 50 50 mcg PO DAILY 03/21/23 11/22/24 History mcg (2,000 unit) capsule vits no.130-ferrous fum 1 tab PO DAILY 04/29/24 11/22/24 History 27 mg iron-folic acid 800 mcg tablet ( Vitamin) pantoprazole 40 mg tablet,delayed 40 mg PO DAILY #90 tabs 05/28/24 11/22/24 Rx release (Protonix) albuterol sulfate 90 mcg/actuation 2 puff inhalation Q4HP PRN Wheezing 09/25/24 11/23/24 History aerosol inhaler (Ventolin HFA) blood-glucose meter (OneTouch #1 ea 10/09/24 11/22/24 History Ultra2 Meter) metformin 500 mg tablet 500 mg PO BID #60 tabs 10/09/24 11/22/24 Rx labetalol 200 mg tablet 200 mg PO Q12H #60 tabs 10/16/24 11/22/24 Rx famotidine 20 mg tablet (Pepcid) 20 mg PO DAILY #30 tabs 10/26/24 11/22/24 Rx levothyroxine 200 mcg tablet 200 mcg PO DAILY #30 tabs 10/30/24 11/22/24 Rx blood sugar diagnostic (OneTouch #100 ea 11/02/24 11/22/24 Rx Ultra Test strips) lancets #100 ea 11/02/24 11/22/24 Rx New Prescriptions to Start Prescriptions: Allergies Allergy/AdvReac Type Severity Reaction Status Date / Time No Known Allergies Allergy Verified 11/16/24 10:14 OB - H&P: Exam Constitutional no acute distress and cooperative Routine HEENT Exam Head: Present normocephalic and atraumatic Eye: Absent conjunctivae pink ENT: Present mucous membranes moist Routine Neck Exam Present full ROM Routine Respiratory Exam Present CTA bilaterally and normal respiratory effort Routine Cardiovascular Exam Present RRR Routine Abdominal Exam Present soft (Gravid); Absent tenderness or distended Routine Rectal Exam Patient deferred: visual exam Routine Exam External: Present normal urethra appearance; Absent erythema, swelling, tenderness, lesions or lacerations Routine Extremities Exam Present full ROM; Absent edema or calf tenderness Routine Neurological Exam Present alert, moving all extremities and normal speech Routine Psychiatric Exam Present normal affect and cooperative Detailed Labor and Delivery Exam Dilation (cm): 1 Effacement (%): 60 Cervix position: mid station: -4 Consistency: soft Membranes: intact Baseline heart rate: 140 monitor accelerations: Present monitor decelerations: Late watermelon harvesting supervisor variability: Average (6-10) Contraction frequency (min): 4 OB - Results Labs Labs: Short CBC 11/22/24 Range/Units 16:45 WBC 9.6 (4.8-10.8) K/mm3 Hgb 10.9 L (12.2-16.2) g/dL Hct 32.0 L (37.0-47.0) % Plt Count 191 (142-424) K/mm3 Urine 11/22/24 Range/Units 16:24 Urine Color Yellow (Yellow) Urine Appearance Slightly cloudy (Clear) Urine pH 6.5 (5.0-8.5) Ur Specific [place] 1.030 (1.005-1.030) Urine Protein Trace A (Negative) Urine Glucose (UA) Negative (Negative) OB - A/P Antepartum (1) Chronic hypertension in : Status: Acute (2) Gestational diabetes mellitus (GDM) controlled on oral hypoglycemic drug, antepartum: Status: Acute (3) Advanced maternal age (AMA), 40 years or greater: Status: Acute (4) Hypothyroidism affecting : Status: Acute (5) Tobacco use affecting , antepartum: Status: Acute (6) Marijuana use during : Status: Acute (7) LGA (large for gestational age) fetus: Status: Acute (8) Drug use complicating : Problem details: UDS positive for Alpha-hydroxyalprazolam (metabolite of Alprazolam (Xanax)) Status: Acute (9) Request for sterilization: Status: Acute (10) Category II heart rate tracing during labor and delivery: Status: Acute Additional Plan Additional Information:: Admit to [facility] for induction of labor. GBS negative She received Cytotec 50 mcg PO x 1 dose. Later doses were held secondary to category 2 heart rate tracing with occasional variable and late decelerations. Upon exam this morning cervix was 1 cm dilated and thick; could not reach internal os. Baby's head was not engaged in the pelvis. Bedside ultrasound confirmed cephalic presentation but baby was not in the pelvis. Fani elects to proceed with elective primary and permanent sterilization with bilateral salpingectomy Discussed risks, benefits, alternatives, expectations and possible complications of surgery. All questions addressed and answered. She voiced understanding of risks and possible complications. Consent form signed Proceed with elective primary
[2024-11-23 09:46] LABS: Albumin Level 3.4 g/dl (3.5-5.0); Chloride 111 mmol/L (98-107); Sodium 134 mmol/L (136-145)
[2024-11-23 09:47] LABS: Potassium 4.1 mmoL/L (3.5-5.1)
[2024-11-23 09:49] LABS: Alanine Aminotransferase 24 U/L (12-78); Albumin/Globulin Ratio 1.3 (1.1-1.8); Alkaline Phosphatase 159 U/L (38-126); Anion Gap 8.1 mEq/L (5-15); Aspartate Amino Transferase 28 U/L (14-36); Bilirubin,Total 0.2 mg/dl (0.2-1.3); Blood Urea Nitrogen 7 mg/dl (7-17); Carbon Dioxide 19 mmol/L (22.0-30.0); Creatinine Clearance Estimated 233 mL/min (50-200); Estimated Glomerular Filt Rate 137 ml/min (>60); GFR (African American) 165 ML/MIN (>60); Globulin 2.6 g/dL (1.3-3.2)
[2024-11-23] MEDS: LEVOTHYROXINE 100MCG (0.1MG) TAB 200 MCG PO (09:49)
[2024-11-23 09:50] LABS: Calcium 8.7 mg/dl (8.4-10.2); Glucose 98 mg/dl (74-100)
[2024-11-23 09:53] LABS: RPR W/RFX Titers Nonreactive (Nonreactive)
[2024-11-23] MEDS: LACTATED RINGERS 1000ML 1,000 ML 250 ML IV (11:04)
--- NOTE | 2024-11-23 12:13 | P.PNANES_ITS ---
[facility] Disclaimer: The information contained in this section may have been updated after the patient was seen, as this information can be updated by other users. Medical History (Updated 11/23/24 @ 09:08 by Rubi Cooper DO) Category II heart rate tracing during labor and delivery Request for sterilization LGA (large for gestational age) fetus Thyroid disease affecting Gestational diabetes mellitus (GDM) controlled on oral hypoglycemic drug, antepartum Drug use complicating Chronic hypertension in Limited care in second trimester Dizziness Palpitations GERD (gastroesophageal reflux disease) Dyspnea Marijuana use during Nausea and vomiting in Tobacco use affecting , antepartum Advanced maternal age (AMA), 40 years or greater Hypothyroidism affecting Vaginal odor Anorgasmia of female Menorrhagia Dysmenorrhea Uterine fibroid Chronic pelvic pain in female Surgical History H/O dilation and curettage Family History Other Alcoholism Hypertension Kidney disease Substance abuse Thyroid disorder Social History (Updated 11/22/24 @ 16:24 by Veronica Dalton RN) Smoking Status: Current every day smoker alcohol intake: never substance use type: former substance user, opiates and painkillers current occupational status: other Travel in the last 8 weeks: None Have you lived/traveled outside US in past 30 days?: No Contact w/someone who lives/traveled outside US past 30 days?: No Exposure to someone with infectious disease in past 14 days?: No Do you have a fever (greater than 100.4 F or 38 C)?: No Have you tested positive for COVID-19: No Exposed to someone with COVID-19 in past 14 days?: No Do you have a sore throat?: No Do you have a cough?: No Do you have any weakness?: No Are you experiencing any nausea/vomitting?: No Do you have any diarrhea?: No Are you experiencing any unusual bleeding?: No Do you have any muscle aches/pain?: No Do you have any abdominal pain?: No Are you experiencing loss of taste or smell?: No [facility] Anesthesia Checklist Patient Identification Patient Identification: Arm Band Structural Data Admitted From: Inpatient Planned Operative Procedure/s: Primary C/S, with BTL Consent for Planned Operative Procedure(s) Verified: Yes Verified Documents: Surgical Consent and History and Physical NPO Status Verified Time NPO: 00:00 Additional verifications Patient : Yes Anesthesia Reactions: No Airway Assessment Mallampati Score:: Class II C-Spine Mobility Assessed: Yes TMJ Mobility Assessed: Yes Dentition: Good Dentition Neurological Assessment Level of Consciousness: Awake, Alert and Appropriate Anesthesia Plan Anesthesia Risk discussed: Yes Anesthesia Plan: Verified ASA Class: II Anesthesia Type: Spinal (with Bilateral TAP Block)
--- NOTE | 2024-11-23 13:30 | P.OP_ITS ---
Date of procedure: 11/23/24 Pre-op Diagnosis:: 1. IUP at 38w1d 2. CHTN 3. GDMA2 4. Hypothyroidism in 5. AMA 6. Tobacco use 7. Marijuana use in 8. LGA baby 9. Category 2 heart tracing remote from delivery 10. Unengaged head 11. Elective c-sesarean section 12. Completed with childbearing and desires permanent sterilization Post-op Diagnosis:: 1. IUP at 38w1d 2. CHTN 3. GDMA2 4. Hypothyroidism in 5. AMA 6. Tobacco use 7. Marijuana use in 8. LGA baby 9. Category 2 heart tracing remote from delivery 10. Unengaged head 11. Elective c-sesarean section 12. Completed with childbearing and desires permanent sterilization Procedure performed:: Primary Low Transverse Section and bilateral salpingectomy Surgeon:: Rubi Cooper DO Retort Load Expediter(s):: Catrachito Hess MD POTTERY DECORATION DESIGNER:: Joshua Patino Anesthesia: spinal Estimated blood loss (mL): 600 Clinical Note:: Ms Fani Samaniego is a 39 yo at 38w1d who presents to [facility] L&D for scheduled induction of labor secondary to CHTN and GDMA2. is also complicated by AMA, hypothyroidism, marijuana use, tobacco use and LGA baby. She had limited care in the second trimester but good care in the third trimester. She is taking Labetalol 200 mg q 12 hours, metformin 500 mg PO BID, 10 units insulin at bedtime and levothyroxine 200 mcg daily. Last TSH 0.887 on 10/30/24. Baby is active. No vaginal bleeding or leakage of fluid. She received Cytotec 50 mcg PO x 1 dose. Later doses were held secondary to category 2 heart rate tracing with occasional variable and late dece lerations. Upon exam this morning cervix was 1 cm dilated and thick; could not reach internal os. Baby's head was not engaged in the pelvis. Bedside ultrasound confirmed cephalic presentation but baby was not in the pelvis. Fani elects to proceed with elective primary and permanent sterilization with bilateral salpingectomy. Discussed risks, benefits, alternatives, expectations and possible complications of surgery. All questions addressed and answered. She voiced understanding of risks and possible complications. Consent form signed. Operative findings:: 1. Live female baby, Kathy, weighing 8 lb 3 oz. AGPARs 8 (1 min), 9 (5 min) 2. Nuchal cord x 1, easily reduced 3. Uterus, bilateral fallopian tubes and bilateral ovaries grossly normal Operative note:: The risks, benefits and alternatives of the procedure were reviewed with the patient. Informed consent was obtained. Patient was taken to the operating room where spinal anesthesia was placed. The patient received 2 grams of Ancef preoperatively. Patient was placed in dorsal supine position with a leftward tilt. SCDs in place. Rodgers catheter was inserted and draining clear urine prior to the start of the procedure. heart tones were obtained. Patient was then prepped and draped in normal sterile fashion. Allis clamp test was performed to ensure adequate anesthesia. A Pfannenstiel skin incision was made 2 cm above pubic symphysis. This was carried through to underlying layer of fascia. Fascia was incised in midline, extended laterally with Ellington scissors. Superior aspect of fascial incision was grasped with two Joel clamps, elevated up, and rectus muscle dissected off bluntly and sharply with Ellington scissors. Inferior aspect of fascial incision was grasped with two Joel clamps, elevated up, and rectus muscle dissected off bluntly and sharply with Ellington scissors. The retcus muscle was then in the midline and the peritoneum was entered bluntly with a digit. Peritoneal incision was then extended superiorly and inferiorly with good visualization of the bladder. Herman retractor was inserted. The lower uterine segment was incised in a transverse fashion. Clear amniotic fluid was noted. Head was delivered without difficulty. Nuchal x 1 was easily reduced. Remainder of body was delivered without difficulty. Mouth and nares were bulb suctioned. Spontaneous cry was noted. Delayed cord clamping was performed for 60 seconds. The umbilical cord was clamped and cut. The infant was handed to awaiting pediatric staff in stable condition. Dr. Everett was present. Apgars were 8 (1 min), 9 (5 min). Cord blood was obtained. Gentle traction on the umbilical cord and uterine fundal massage delivered the placenta. Placenta was intact. Placenta will be sent to pathology for review. Uterus was cleared of all clots and debris with a moist laparotomy sponge. Corners of the uterine incision were grasped with Allis clamps. The uterine incision was reapproximated with # 1 Vicryl suture in a running, locked stitch. Second layer of the same stitch was used to imbricate the incision. Vesicouterine peritoneum was reapproximated in a running locked stitch with 2-0 Vicryl suture. Hemostasis was noted. Posterior cul-de-sac was cleaned with moist laparotomy sponge. Gutters cleared of all clots and debris with a moist laparotomy sponge. Reinspection of the lower uterine segment demonstrated hemostasis. At this point all instruments and sponges were removed from the pelvis.? The peritoneum was grasped with Tamela clamps x 3. The peritoneum was reapproximated with 0 Vicryl suture in a running stitch. The corners of the fascia were grasped with Joel clamps, and the fascia was reapproximated with two # 1 Vicryl suture overlapped to the right of midline. Subcutaneous tissue was irrigated with clear return of fluids. The subcutaneous tissue was reapproximated with 3-0 Vicryl. The skin was reapproximated with Insorb casper. Telfa was placed over closed Pfannenstiel skin incision. At the end of the procedure, the uterus was firm with minimal vaginal bleeding. Patient tolerated the procedure well. Instrument, sponges and needle counts were correct x 2. Mom and baby were transported to recovery room in stable condition. Condition: stable Disposition: floor Specimens:: 1. Placenta and umbilical cord 2. Cord blood 3. Bilateral fallopian tubes Complications:: None
[2024-11-23 13:40] VITALS: BP 117/68; PULSE 67; RESP 18; TEMP 36.7; O2SAT 99
[2024-11-23 13:50] VITALS: BP 119/66; PULSE 71; RESP 18; TEMP 36.7; O2SAT 99
--- NOTE | 2024-11-23 13:52 | EXP.ANES.I ---
[facility] Anesthesia Record Part I Anesthesia Record I Intake, IV Amount: 1,550 Hydration: Adequate Estimated blood loss (mL): 300 Urine output (mL): 100 Blood Products used (#): none Blood Pressure: 117/68 SaO2: 97 Pulse Rate: 70 Airway Patency: Patent Respiratory Rate: 16 Temperature: 98 F Patient is:: Awake and Stable Stable to PACU at:: 13:46
[2024-11-23 13:55] VITALS: BP 117/68; PULSE 70; RESP 16; TEMP 36.6; O2SAT 97
[2024-11-23 14:00] VITALS: BP 115/67; PULSE 72; RESP 18; TEMP 36.7; O2SAT 99
[2024-11-23 14:10] VITALS: BP 119/64; PULSE 81; RESP 18; TEMP 36.7; O2SAT 99
[2024-11-23] MEDS: OXYTOCIN/RINGERS LACTATE 30 UNITS/500 ML BAG 40 UNITS IV (14:15)
[2024-11-23 14:54] LABS: Microscopic,Cath URINE MICROSCOPIC (MICROSCOPIC)
[2024-11-23] MEDS: ACETAMINOPHEN 500MG TAB 1000 MG PO ×2 (15:12→20:28)
[2024-11-23] MEDS: KETOROLAC 30MG/ML VIAL 30 MG IV ×2 (15:13→21:10)
[2024-11-23] MEDS: OXYCODONE 5MG IMMEDIATE RELEASE TABLET 5 MG PO (15:51)
[2024-11-23 15:52] LABS: Appearance,Urine/Cath Cloudy (Clear); Bilirubin,Cath Negative (Negative); Blood, Urine/Cath Negative (Negative); Color,Urine/Cath Yellow (Yellow); Glucose,Urine/Cath (UA) Negative (Negative); Ketones,Urine/Cath Negative (Negative); Leukocyte Esterase,Cath Negative (Negative); Nitrate,Cath Negative (Negative); Protein,Urine/Cath Negative (Negative); Urobilinogen,Cath 0.2 EU/dl (0.2); WBC,Urine/Cath Occasional #/hpf (0-3)
[2024-11-23] MEDS: HYDROMORPHONE 2MG/ML SYRINGE 1 MG IV ×2 (18:33→21:10)
[2024-11-23 20:03] VITALS: BP 108/55; PULSE 74; RESP 18; TEMP 36.7; O2SAT 97
[2024-11-23] MEDS: CEFAZOLIN SODIUM 2 GM in 0.9 % SODIUM CHLORIDE 100 ML IV (20:28)
[2024-11-23] MEDS: SIMETHICONE 80MG CHEWABLE TABLET 160 MG PO (21:10)
[2024-11-24] MEDS: HYDROMORPHONE 2MG/ML SYRINGE 1 MG IV ×2 (01:33→04:29)
[2024-11-24] MEDS: ACETAMINOPHEN 500MG TAB 1000 MG PO ×4 (01:34→23:28)
[2024-11-24 04:01] VITALS: BP 111/59; PULSE 76; RESP 16; TEMP 36.5; O2SAT 98
[2024-11-24] MEDS: KETOROLAC 30MG/ML VIAL 30 MG IV (04:04)
[2024-11-24] MEDS: CEFAZOLIN SODIUM 2 GM in 0.9 % SODIUM CHLORIDE 100 ML IV (04:04)
[2024-11-24] MEDS: LEVOTHYROXINE 100MCG (0.1MG) TAB 200 MCG PO (06:28)
[2024-11-24 06:30] LABS: Basophils % 0.2 % (0.1-2.0); Eosinophils # 0.1 K/mm3 (0.0-0.4); Eosinophils % 1.2 % (0.1-12.0); Hematocrit 28.1 % (37.0-47.0); Hemoglobin 9.4 g/dL (12.2-16.2); Lymphocytes # 1.6 K/mm3 (0.7-4.5); Lymphocytes % 15.4 % (10-50); Mean Corpuscular HGB Conc 33.5 g/dL (31.8-35.4); Mean Corpuscular Hemoglobin 31.3 pg (27.0-31.2); Mean Corpuscular Volume 93.7 fl (81-99); Mean Platelet Volume 10.2 fl (7.4-10.4); Monocytes # 0.6 K/mm3 (0.1-1.0); Monocytes % 5.9 % (1.7-9.3); Neutrophils % 76.6 % (37.0-80.0); Platelet Count 143 K/mm3 (142-424); White Blood Count 10.4 K/mm3 (4.8-10.8)
[2024-11-24 06:58] LABS: Glucose,Fasting 102 mg/dl (74-100)
[2024-11-24] MEDS: OXYCODONE 5MG IMMEDIATE RELEASE TABLET 5 MG PO ×4 (07:49→19:44)
[2024-11-24] MEDS: IRON SUCROSE COMPLEX 200 MG in 0.9 % SODIUM CHLORIDE 100 ML 220 MG IV (09:27)
[2024-11-24 09:33] VITALS: BP 119/64; PULSE 81; RESP 18; TEMP 36.6; O2SAT 99
--- NOTE | 2024-11-24 09:33 | P.PNANES_ITS ---
[facility] Anesthesia Record Part II Anesthesia Record Part II Discharge Time: 14:10 Destination: Obstetric PACU nurse assessment reviewed?: Yes Patient Condition:: Good Anesthesia Complications:: None Swallowing reflex intact?: Yes Airway Patency: Patent Cyanosis?: No Blood Pressure: 119/64 SaO2: 99 Respiratory Rate: 18 Pulse Rate: 81 Temperature: 98 F Mental Status: Alert & Oriented Pain level:: 0 Nausea and/or vomitting:: None Intake, IV Amount: 0 Hydration: Adequate
--- NOTE | 2024-11-24 09:55 | SW/DCPLANNER ---
Addendum entered by Prerna Ruth 11/27/24 07:27: Infant cord screen is negative. Original Note: I received a consult for this patient regarding THC early and positive for Xanax in September. Patient tested positive for THC at initial visit 04/30/24. Patient stated no further THC use since first visit. Patient did test positive for Xanax on 09/26/2024. Patient admits to using Xanax in September to assist w/ sleeping and this was a one time use. Patient and infant urine drug screens were negative at admission. Patient stated that she did go to rehab for alcohol in 2020 ([facility] in [place]). Patient delivered infant female (Kathy Samaniego) on 11/23/2024. Per patient 's father (Dinesh Jeffers 12/07/1986) is involved. Patient does have two other children w/ no past Social Service involvement. Patient and three children will reside at [address] [place] [address] in [place] [address]. Patient's contact number is [phone]. Patient is currently established w/ WIC and has the following items at home crib, car seat, clothing, diapers and will be bottle feeding. PED MD will be Dr Everett for initial visit but does plan to switch to [place] afterwards. Patient confirmed she will have transportation to all follow up appointments. Nursing staff noted some concern regarding patient's amount of interaction w/ but will follow up w/ me today if further concerns are noted. Patient's sister was completing most care for but did leave hospital today. Patient and infant are expected to discharge home tomorrow 11/25/2024 pending no setbacks.
[2024-11-24] MEDS: IBUPROFEN 400 MG TABLET 800 MG PO ×2 (11:34→19:44)
--- NOTE | 2024-11-24 13:11 | EXP.ACUTE.PN ---
Subjective *Date: 11/24/24 *Time: 13:11 Interval history: POD # 1 s/p PLTCS Feeling okay. Pain not well controlled. Formula feeding. Lochia is appropriate. Voiding without difficulty and passing flatus. Tolerating regular diet. Denies fever/chills, chest pain and shortness of breath. No headaches, vision changes, lightheadedness/dizziness. No lower extremity swelling. Ambulating well ad lisandra. Medical Exam Vital signs and Labs for Last 24 Hours: Vital Signs Temp Pulse Pulse Pulse Resp BP BP 11/24/24 09:33 18 11/24/24 04:01 97.7 F 76 16 111/59 L 11/23/24 20:03 98.0 F 74 18 108/55 L 11/23/24 14:10 98.0 F 81 18 119/64 11/23/24 14:00 98.0 F 72 18 115/67 11/23/24 13:55 98 F 70 16 117/68 11/23/24 13:50 98.0 F 71 18 119/66 11/23/24 13:40 98.0 F 67 18 117/68 Pulse Ox O2 Del Method 11/24/24 09:33 11/24/24 04:01 98 Room Air 11/23/24 20:03 97 Room Air 11/23/24 14:10 99 Room Air 11/23/24 14:00 99 Room Air 11/23/24 13:55 11/23/24 13:50 99 Room Air 11/23/24 13:40 99 Room Air Intake and Output 11/23/24 11/24/24 11/24/24 23:59 07:59 15:59 Intake Total 0 / 0 Output Total 1300 / 1300 Balance -1300 / 250 0 / 0 Intake: Intake, Total IV Amount 0 / 0 Output: Output, Urine Amount 200 / 200 Output, Urine Amount (Catheter) 1100 / 1100 Rodgers 1100 / 1100 Laboratory Results - last 24 hr 11/23/24 12:20: Urine Color Yellow, Urine Appearance Cloudy, Urine pH 7.0, Ur Specific [place] 1.020, Urine Protein Negative, Urine Glucose (UA) Negative, Urine Ketones Negative, Urine Blood Negative, Urine Nitrate Negative, Urine Bilirubin Negative, Urine Urobilinogen 0.2, Ur Leukocyte Esterase Negative, Urine RBC None, Urine WBC Occasional, Ur Squamous Epith Cells 3-5, Urine Bacteria None 11/24/24 06:14: WBC 10.4, RBC 3.00 L, Hgb 9.4 L, Hct 28.1 L, MCV 93.7, MCH 31.3 H, MCHC 33.5, RDW 14.0, Plt Count 143 D, MPV 10.2, Neut % (Auto) 76.6, Lymph % (Auto) 15.4, [place] % (Auto) 5.9, Eos % (Auto) 1.2, Baso % (Auto) 0.2, Neut # (Auto) 8.0 H, Lymph # (Auto) 1.6, [place] # (Auto) 0.6, Eos # (Auto) 0.1, Baso # (Auto) 0.0, Fasting Glucose 102 H I & O for Labs for Last 24 Hours: Intake & Output 11/21/24 11/23/24 11/23/24 11/24/24 23:59 00:59 23:59 23:59 Intake Total 1550 / 1550 0 / 0 Output Total 1300 / 1300 Balance 250 / 250 0 / 0 Weight 218 lb Head: Present atraumatic and normocephalic ENT: Present normal exam Neck: Present full ROM Respiratory: Present CTA bilaterally and normal respiratory effort Cardiac: Present Reg Rate and Rhythm GI: Present soft, tenderness (mild appropriate postop tenderness to palpation) and normal bowel sounds; Absent distention or guarding Comments:: Pfannenstiel incision clean/dry/intact with steri strips in place Rectal (female): Present deferred (female): Present deferred Extremities: Present full ROM and edema (+2 bilateral lower extremity edema); Absent calf tenderness Neuro: Present alert, awake and moves all extremities Assessment and Plan *Assessment and plan (1) S/P : Status: Acute Category: Surgical Code(s): Z98.891 - History of uterine scar from previous surgery (2) Category II heart rate tracing during labor and delivery: Status: Acute Category: Medical Code(s): O76 - Abnormality in heart rate and rhythm complicating labor and delivery (3) Chronic hypertension in : Status: Acute Category: Medical Code(s): O10.919 - Unspecified pre-existing hypertension complicating , unspecified trimester (4) Gestational diabetes mellitus (GDM) controlled on oral hypoglycemic drug, antepartum: Status: Acute Category: Medical Code(s): O24.415 - Gestational diabetes mellitus in , controlled by oral hypoglycemic drugs (5) Drug use complicating : Problem Comment: UDS positive for Alpha-hydroxyalprazolam (metabolite of Alprazolam (Xanax)) Status: Acute Qualifiers: Trimester: third trimester Qualified Code(s): O99.323 - Drug use complicating , third trimester Category: Medical Code(s): O99.320 - Drug use complicating , unspecified trimester (6) LGA (large for gestational age) fetus: Status: Acute Category: Medical (7) Request for sterilization: Status: Acute Category: Medical Code(s): Z30.2 - Encounter for sterilization (8) Tobacco use affecting , antepartum: Status: Acute Category: Medical Code(s): O99.330 - Smoking (tobacco) complicating , unspecified trimester (9) Advanced maternal age (AMA), 40 years or greater: Status: Acute Category: Medical (10) Hypothyroidism affecting : Status: Acute Qualifiers: Trimester: third trimester Qualified Code(s): O99.283 - Endocrine, nutritional and metabolic diseases complicating , third trimester; E03.9 - Hypothyroidism, unspecified Category: Medical Code(s): O99.280 - Endocrine, nutritional and metabolic diseases complicating , unspecified trimester; E03.9 - Hypothyroidism, unspecified (11) Acute blood loss anemia: Status: Acute Category: Medical Code(s): D62 - Acute posthemorrhagic anemia Plan Continue routine care Encouraged increased ambulation Venofer 200 mg IV x 1 dose Plan d/c home POD # 2 or POD # 3
[2024-11-24] MEDS: SIMETHICONE 80MG CHEWABLE TABLET 160 MG PO (19:44)
[2024-11-24] MEDS: PRENATAL MULTIVITAMIN W/IRON 1 EACH PO (19:44)
[2024-11-24] MEDS: SENNA 8.6MG TABLET 8.6 MG PO (19:44)
[2024-11-25] MEDS: IBUPROFEN 400 MG TABLET 800 MG PO (04:26)
[2024-11-25] MEDS: OXYCODONE 5MG IMMEDIATE RELEASE TABLET 5 MG PO ×2 (04:26→08:07)
[2024-11-25] MEDS: ACETAMINOPHEN 500MG TAB 1000 MG PO (08:06)
[2024-11-25] MEDS: LEVOTHYROXINE 100MCG (0.1MG) TAB 200 MCG PO (08:07)
[2024-11-25] MEDS: LABETALOL 100MG TABLET 200 MG PO (08:07)
--- NOTE | 2024-11-25 11:04 | EXP.DC.SUM ---
General Admission date:: 11/22/24 Discharge date: 11/25/24 HPI HPI HPI: POD # 2 s/p PLTCS Feeling well. Pain well controlled. Formula feeding. Lochia is light. Voiding without difficulty and passing flatus. Tolerating regular diet. Denies fever/chills, chest pain and shortness of breath. No headaches, vision changes, lightheadedness/dizziness. She admits to bilateral lower extremity swelling. No calf pain. Ambulating well ad lisandra. Hospital Course Hospital Course Hospital Course: Ms Fani Samaniego is a 39 yo at 38w1d who presents to [facility] L&D for scheduled induction of labor secondary to CHTN and GDMA2. is also complicated by AMA, hypothyroidism, marijuana use, tobacco use and LGA baby. She had limited care in the second trimester but good care in the third trimester. She is taking Labetalol 200 mg q 12 hours, metformin 500 mg PO BID, 10 units insulin at bedtime and levothyroxine 200 mcg daily. Last TSH 0.887 on 10/30/24. Baby is active. No vaginal bleeding or leakage of fluid. Ms Fani Samaniego is a 39 yo at 38w1d who presents to [facility] L&D for scheduled induction of labor secondary to CHTN and GDMA2. is also complicated by AMA, hypothyroidism, marijuana use, tobacco use and LGA baby. She had limited care in the second trimester but good care in the third trimester. She is taking Labetalol 200 mg q 12 hours, metformin 500 mg PO BID, 10 units insulin at bedtime and levothyroxine 200 mcg daily. Last TSH 0.887 on 10/30/24. Baby is active. No vaginal bleeding or leakage of fluid. She received Cytotec 50 mcg PO x 1 dose. Later doses were held secondary to category 2 heart rate tracing with occasional variable and late decelerations. Upon exam this morning cervix was 1 cm dilated and thick; could not reach internal os. Baby's head was not engaged in the pelvis. Bedside ultrasound confirmed cephalic presentation but baby was not in the pelvis. Fani elects to proceed with elective primary and permanent sterilization with bilateral salpingectomy. She underwent primary on 11/23/24. She delivered a live female baby, Kathy, weighing 8 lb 3 oz. AGPARs 8 (1 min), 9 (5 min). EBL 600 mL. She did well /postoperatively. Pain controlled. Formula feeding. Light lochia. Voiding without difficulty and passing flatus. Tolerating regular diet. Denies fever/chills, chest pain and shortness of breath. No headaches, dizziness/lightheadedness or vision changes. POD # 1 Hgb was 9.4. She received Venofer 200 mg IV x 1 dose. Vital signs stable, afebrile. Heart regular rate and rhythm. Lungs clear to auscultation. Abdomen soft, nontender. She had +2 bilateral lower extremity swelling. No calf tenderness to palpation. Ambulating well ad lisandra. Normal hospital course. She was discharged to home on POD # 2 with instructions to follow-up in the office 5 days for BP check and postop visit or sooner if needed. She was instructed to continue Labetalol 200 mg PO q 12 hours when she goes home. Exam Data for Last 24 hours Vital signs and Labs for Last 24 Hours: Temp Pulse Resp BP Pulse Ox O2 Del Method 97.7 F 76 18 111/59 L 98 Room Air 11/24/24 04:01 11/24/24 04:01 11/24/24 09:33 11/24/24 04:01 11/24/24 04:01 11/24/24 04:01 I & O for Last 24 hours: Intake & Output 11/23/24 11/23/24 11/24/24 11/25/24 00:59 23:59 23:59 23:59 Intake Total 1550 / 1550 0 / 0 Output Total 1300 / 1300 Balance 250 / 250 0 / 0 Weight 218 lb Microbiology Reports for the Last 24 Hours: Microbiology 11/22/24 16:24 Urine,Clean Catch Urine Culture - Final No growth. Constitutional Constitutional: no acute distress and cooperative *Routine HEENT Exam Head: Present normocephalic and atraumatic Eye: Absent conjunctivae pink ENT: Present mucous membranes moist *Routine Neck Exam Neck: Present full ROM *Routine Respiratory Exam Respiratory: Present CTA bilaterally and normal respiratory effort *Routine Cardiovascular Exam Cardiovascular: Present RRR *Routine Abdominal Exam Abdominal: Present soft; Absent tenderness or distended Comments: Pfannenstiel incision clean/dry/intact with steri strips in place *Routine Rectal Exam Patient deferred: visual exam *Routine Exam Patient deferred: external exam *Routine Extremities Exam Extremities: Present edema (+2 bilateral lower extremity swelling) and full ROM; Absent calf tenderness *Routine Neurological Exam Neurological: Present alert, moving all extremities and normal speech Routine Psychiatric Exam Psychiatric: Present normal affect and cooperative DS: Diagnosis Discharge Diagnosis (1) S/P : Status: Acute Code(s): Z98.891 - History of uterine scar from previous surgery (2) Category II heart rate tracing during labor and delivery: Status: Acute Code(s): O76 - Abnormality in heart rate and rhythm complicating labor and delivery (3) Chronic hypertension in : Status: Acute Code(s): O10.919 - Unspecified pre-existing hypertension complicating , unspecified trimester (4) Gestational diabetes mellitus (GDM) controlled on oral hypoglycemic drug, antepartum: Status: Acute Code(s): O24.415 - Gestational diabetes mellitus in , controlled by oral hypoglycemic drugs (5) Drug use complicating : Status: Acute Code(s): O99.320 - Drug use complicating , unspecified trimester Qualifiers: Trimester: third trimester Qualified Code(s): O99.323 - Drug use complicating , third trimester Problem details: UDS positive for Alpha-hydroxyalprazolam (metabolite of Alprazolam (Xanax)) (6) LGA (large for gestational age) fetus: Status: Acute (7) Request for sterilization: Status: Acute Code(s): Z30.2 - Encounter for sterilization (8) Tobacco use affecting , antepartum: Status: Acute Code(s): O99.330 - Smoking (tobacco) complicating , unspecified trimester (9) Advanced maternal age (AMA), 40 years or greater: Status: Acute (10) Hypothyroidism affecting : Status: Acute Code(s): O99.280 - Endocrine, nutritional and metabolic diseases complicating , unspecified trimester; E03.9 - Hypothyroidism, unspecified Qualifiers: Trimester: third trimester Qualified Code(s): O99.283 - Endocrine, nutritional and metabolic diseases complicating , third trimester; E03.9 - Hypothyroidism, unspecified (11) Acute blood loss anemia: Status: Acute Code(s): D62 - Acute posthemorrhagic anemia Meds Home Medications and Allergies Home Medications ?Medication ?Instructions ?Recorded ?Confirmed ?Type cholecalciferol (vitamin D3) 50 50 mcg PO DAILY 03/21/23 11/22/24 History mcg (2,000 unit) capsule vits no.130-ferrous fum 1 tab PO DAILY 04/29/24 11/22/24 History 27 mg iron-folic acid 800 mcg tablet ( Vitamin) albuterol sulfate 90 mcg/actuation 2 puff inhalation Q4HP PRN Wheezing 09/25/24 11/23/24 History aerosol inhaler (Ventolin HFA) labetalol 200 mg tablet 200 mg PO Q12H #60 tabs 10/16/24 11/22/24 Rx famotidine 20 mg tablet (Pepcid) 20 mg PO DAILY #30 tabs 10/26/24 11/22/24 Rx levothyroxine 200 mcg tablet 200 mcg PO DAILY #30 tabs 10/30/24 11/22/24 Rx ibuprofen 800 mg tablet 800 mg PO Q8H PRN pain #20 tabs 11/25/24 Rx oxycodone 5 mg tablet 5 mg PO Q4HP PRN Moderate Pain 11/25/24 Rx (4-6) #20 tabs New Prescriptions to Start Prescriptions: ibuprofen Rubi Cooper oxycodone Rubi Cooper Allergies Allergy/AdvReac Type Severity Reaction Status Date / Time No Known Allergies Allergy Verified 11/16/24 10:14 Discharge Plan Disposition Patient Disposition: Home, Self-Care Condition: Good Discharge Order Discharge Orders: Discharge Order (Routine); Ordered 11/25/24 Ordered By: Rubi Cooper Follow up Plan Follow up with: Rubi Cooper DO [Staff Physician] - 12/07/24 3:00 pm (Follow-up on Saturday11/30/24 for postop visit and BP check) Prescriptions/Medication Reconciliation: New oxycodone 5 mg Tablet 5 mg PO Q4HP PRN (Reason: Moderate Pain (4-6)) Qty: 20 0RF ibuprofen 800 mg tablet 800 mg PO Q8H PRN (Reason: pain) Qty: 20 0RF Continued cholecalciferol (vitamin D3) 50 mcg (2,000 unit) capsule 50 mcg PO DAILY albuterol sulfate [Ventolin HFA] 90 mcg/actuation HFA aerosol inhaler 2 puff inhalation Q4HP PRN (Reason: Wheezing) Patient Comments: INHALE 2 PUFFS BY MOUTH EVERY 4 HOURS NEEDED FOR WHEEZING Vitamin 27 mg iron- 800 mcg tablet 1 tab PO DAILY Patient Comments: TAKE 1 TABLET BY MOUTH ONCE DAILY famotidine [Pepcid] 20 mg tablet 20 mg PO DAILY Qty: 30 3RF labetalol 200 mg tablet 200 mg PO Q12H Qty: 60 2RF levothyroxine 200 mcg tablet 200 mcg PO DAILY Qty: 30 1RF Discontinued pantoprazole [Protonix] 40 mg tablet,delayed release (DR/EC) 40 mg PO DAILY Qty: 90 3RF (DME) OneTouch Ultra Test Strip See Rx Instructions .ROUTE .MEDSUPPLY Qty: 100 1RF Rx Instructions: As directed (DME) lancets Misc See Rx Instructions .Route Qty: 100 1RF Rx Instructions: 4x daily (DME) blood-glucose meter [OneTouch Ultra2 Meter] Misc See Rx Instructions .ROUTE .MEDSUPPLY Qty: 1 Rx Instructions: As directed metformin 500 mg tablet 500 mg PO BID Qty: 60 3RF Problem Reconciliation Problems Reviewed?: Yes Patient Discharge Instructions ACTIVITY: Limited activity DIET: regular diet Additional Instructions: Follow up with Dr. Cooper for a blood pressure check on Saturday11/30/24 @ 10:30 am. Congratulations!! Discharge: 1. Take 800 mg Ibuprofen every 8 hours as needed for pain. You can also take 500-1000 mg of Tylenol in between doses, every 6-8 hours. 2. Nothing in the vagina for 6 weeks - no intercourse, douching or tampons. No tub baths/hot tubs or swimming pools 3. No lifting anything heavier than baby in pumpkin seat for 6 weeks 4. Reasons to return to L&D or call On-Call doctor - fever (greater than 100.4) - heavy vaginal bleeding (soaking through 1 pad in less than 2 hours) - vaginal discharge (malodorous and/or purulent) - severe headaches not resolved by medication or rest and leg tenderness/edema 4. depression/blues - Normal to feel anxious/overwhelmed for first 2 weeks - Talk to your doctor if: severe anxiety, trouble bonding with baby, withdrawing from other family members, thoughts of harming yourself or others Rubi Cooper DO [facility] [place] [phone] Patient Instructions: Depression, Hemorrhage, DI for , DI for Pre-eclampsia Print Language: Ukrainian Providers Primary Care Provider: Jim Hung Admit Provider: Rubi Cooper Attending Provider: Rubi Cooper
== END 2024-11-25 13:30 | disposition home or self-care (01) | DRG 784 ==
PROVIDERS: Nurse Practitioner Obstetrics & Gynecology; Admitting Provider Obstetrics & Gynecology; PCP Family Medicine; Visit Provider Obstetrics & Gynecology
PROC: 0UL70ZZ Occlusion of Bilateral Fallopian Tubes, Open Approach (ICD-10-PCS; CPT 59514; principal; 2024-11-23 12:00)
DX: O76 Abnormality in fetal heart rate and rhythm complicating labor and delivery (principal); D62 Acute posthemorrhagic anemia; O10.02 Pre-existing essential hypertension complicating childbirth; O99.284 Endocrine, nutritional and metabolic diseases complicating childbirth; O24.424 Gestational diabetes mellitus in childbirth, insulin controlled; Z3A.38 38 weeks gestation of pregnancy; Z37.0 Single live birth; O99.334 Smoking (tobacco) complicating childbirth; F17.210 Nicotine dependence, cigarettes, uncomplicated; O32.4XX0 Maternal care for high head at term, not applicable or unspecified; E03.9 Hypothyroidism, unspecified; Z30.2 Encounter for sterilization; O69.81X0 Labor and delivery complicated by cord around neck, without compression, not applicable or unspecified; O90.81 Anemia of the puerperium; K21.9 Gastro-esophageal reflux disease without esophagitis; F12.90 Cannabis use, unspecified, uncomplicated; O99.320 Drug use complicating pregnancy, unspecified trimester
CPT/HCPCS: 36415; 59025; 80053; 80307; 81001; 82947; 82962; 85025; 86592; 86850; 87086; 88302; 88307; 94761; 96374; G0283; J0595; J0666; J1171; J1200; J1756; J1885; J2405; J3010; J7120

== ENCOUNTER 2025-01-06 08:19 | Outpatient (CLI) | payer MEDICAID, SELFPAY ==
[2025-01-06 09:02] LABS: Glucose,Fasting 106 mg/dl (74-100)
[2025-01-06 10:01] LABS: Glucose 1 Hour 123 mg/dL (74-100)
[2025-01-06 10:10] LABS: Thyroid Stimulating Hormone 0.02 uIU/mL (0.465-4.68)
[2025-01-06 11:15] LABS: Glucose 2 Hour 54 mg/dL (74-100)
== END 2025-01-06 23:59 | disposition home or self-care (01) ==
LOC: LAB 08:19
PROVIDERS: PCP Family Medicine; Visit Provider Obstetrics & Gynecology
DX: E03.9 Hypothyroidism, unspecified (principal); O24.419 Gestational diabetes mellitus in pregnancy, unspecified control
CPT/HCPCS: 36415; 82951; 84443

== ENCOUNTER 2025-05-11 13:04 | Outpatient (CLI) | payer MEDICAID, SELFPAY ==
--- OUTSIDE RECORDS SUMMARY | 2025-05-07 10:00 | XMS_ITS | Encounter Summary ---
[facility] Organization [facility] Address [address] [place] [address] Care Team Providers Care Senior Paralegal Name Role Phone Jim Hung MD Primary Care Provider [phone] Reason for Referral * Diagnostic Imaging (Routine) - Authorized Specialty Diagnoses / Procedures Referred By Contac t Referred To Contact Radiology Diagnoses Screening mammogram for breast cancer Procedures Mammo Screening Digital Tomosynthesis Bilateral With CAD Jim Hung MD [address] [facility] [place] [address] Phone: tel: fax: [facility] [address] [place] [address] Phone: tel: Referral ID Status Reason Start Date Expiration Date V isits Requested Visits Authorized Authorized 05/07/2025 08/06/2026 1 1 Reason for Visit * Reason Comments Labs Only Thyroid levels check ed URI X 5 days, Encounter Details Date Type Department Care Team (Latest Contact Info) Description 05/07/2025 10:00 AM EDT Office Visit [facility] [address] [place] [address] Jim Hung MD [address] [facility] [place] [address] Acquired hypothyroidism (Primary Dx); Strep pharyngitis; Insulin controlled gestational diabetes mellitus (GDM) in third trimester; Screening mammogram for breast cancer Social History Tobacco Use Types Packs/Day Years Used Date Smoking Tobacco: Some Days Electronic Cigarette Smokeless Tobacco: Never Alcohol Use Standard Drinks/Week Comments Not Currently 0 (1 standard drink = 0.6 oz pur e alcohol) PHQ-2 Answer Date Recorded Retired PHQ-9: Brief Depression Severity Measure Score 1 10/19/2022 PHQ-2 Answer Date Recorded Patient Health Questionnaire-2 Score 0 11/06/2024 Comments No Sex and Gender Information Value Date Recorded Sex Assigned at Female 04/30/2025 8:26 AM EDT Legal Sex Female 10:08 AM EDT Gender Identity Not on file Sexual Orientation Straight 04/30/2025 8: 26 AM EDT documented as of this encounter Last Filed Vital Signs Vital Sign Reading Time Taken Comments Blood Pressure 120/74 05/07/2025 10:06 AM EDT Pulse 86 05/07/2025 10:06 AM EDT Temperature 36.5 C (97.7 F) 05/07/2025 10:06 AM EDT Respiratory Rate 18 05/07/2025 10:06 AM EDT Oxygen Saturation 98% 05/07/2025 10:06 AM EDT Inhaled Oxygen Concentration - - Weight 98.4 kg (217 lb) 05/07/2025 10:06 AM EDT Height 159.4 cm (5' 2.75 ) 05/07/2025 10:06 AM E DT Body Mass Index 38.75 05/07/2025 10:06 AM EDT documented in this encounter Progress Notes * Jim Hung MD - 05/07/2025 10:00 AM EDT Subjective Fani Samaniego is a 39 y.o. female. History of Present Illness When she was her thyroid was off She has been on 137 mcg at this time for the past couple months Wonders what her thyroid has been doing She has gestational DM and was on insulin Not taking anything right now She has been ill ST, congestion Nasal congetion Minor cough The following portions of the patient's history were reviewed and updated as appropriate: allergies, current medications, past family history, past medical history, past social history, past surgicalhistory, and problem list. Review of Systems Constitutional: Negative. Respiratory: Negative. Cardiovascular: Negative. Psychiatric/Behavioral: Negative. Objective Physical Exam Vitals and nursing note reviewed. Constitutional: General: She is not in acute distress. Appearance: Normal appearance. She is well-developed. HENT: Head: Normocephalic and atraumatic. Right Ear: Hearing, tympanic membrane, ear canal and external ear normal. Left Ear: Hearing, tympanic membrane, ear canal and external ear normal. Nose: Nose normal. Mouth/Throat: Pharynx: Uvula midline. Eyes: Conjunctiva/sclera: Conjunctivae normal. Cardiovascular: Rate and Rhythm: Normal rate and regular rhythm. Heart sounds: Normal heart sounds. Pulmonary: Effort: Pulmonary effort is normal. Breath sounds: Normal breath sounds. Musculoskeletal: Cervical back: Normal range of motion. Lymphadenopathy: Cervical: No cervical adenopathy. Neurological: Mental Status: She is alert and oriented to person, place, and time. Psychiatric: Mood and Affect: Mood normal. Behavior: Behavior normal. Thought Content: Thought content normal. Judgment: Judgment normal. Assessment & Plan Diagnoses and all orders for this visit: 1. Acquired hypothyroidism (Primary) - TSH+Free T4 2. Strep pharyngitis - amoxicillin (AMOXIL) 500 MG capsule; Take 2 capsules by mouth 2 (Two) Times a Day. Dispense: 28 capsule; Refill: 0 3. Insulin controlled gestational diabetes mellitus (GDM) in third trimester - CBC & Differential - Comprehensive Metabolic Panel - Hemoglobin A1c 4. Screening mammogram for breast cancer - Mammo Screening Digital Tomosynthesis Bilateral With CAD; Future Other orders - Chlorcyclizine-Pseudoephed 25-60 MG tablet; 1/2-1 po q 8 hours PRN Dispense: 30 tablet; Refill: 1 Will recheck thyroid and glucose levels to see if medical intervention needed. She has not been on any medicine for these conditions recently. F/u pending labs Will treat ST with amox, pt to call back INB. Ok stahist for congesiton Mammogram ordered as well documented in this encounter Plan of Treatment Scheduled Orders Name Type Priority Associated Diagnoses Orde r Schedule Mammo Screening Digital Tomosynthesis Bilateral With CAD Imaging Routine Screening mammogram for breast cancer Expected: 11/03/2025 (Approximate), Expires: 05/07/2026 documented as of this encounter Procedures Procedure Name Priority Date/Time Associated Diagnosis Comments TSH+FREE T4 Routine 05/07/2025 10:32 AM EDT Acquired hypothyroidism CBC AND DIFFERENTIAL Routine 05/07/2025 10:32 AM EDT Insulin controlled gestational diabetes mellitus (GDM) in third trimester HEMOGLOBIN A1C Routine 05/07/2025 10:32 AM EDT Insulin controlled gestational diabetes mellitus (GDM) in third trimester COMPREHENSIVE METABOLIC PANEL Routine 05/07/2025 10:32 AM EDT Insulin controlled gestational diabetes mellitus (GDM) in third trimester documented in this encounter Results * TSH+Free T4 (05/07/2025 10:32 AM EDT) TSH 2.700 0.270 - 4.200 uIU/mL [facility] Free T4 1.30 0.92 - 1.68 ng/dL [facility] Blood 05/07/2025 10:3 2 AM EDT 05/07/2025 Narrative [facility] ([facility]) - 05/08/2025 3:07 AM EDT Performed at: [address] [place] [address] [id number] Marketing Underwriter: Moshe Torres MD, Phone: [phone] Patient Fasting: Y us Jim Hung MD LAB BLOOD ORDERABLES Final Resu lt [facility] ([facility]) [address] [place] [address], [place] [phone] [facility] [address] [place] [address], [place] [phone] * Hemoglobin A1c (05/07/2025 10:32 AM EDT) Hemoglobin A1C 5.30 4.80 - 5.60 % [facility] Comment: Hemoglobin A1C Ranges: Increased Risk for Diabetes 5.7% to 6.4% Diabetes >= 6.5% Diabetic Goal < 7.0% Blood 05/07/2025 10:3 2 AM EDT 05/07/2025 Narrative [facility] ([facility]) - 05/08/2025 3:07 AM EDT Performed at: [address] [place] [address] [id number] Marketing Underwriter: Moshe Torres MD, Phone: [phone] Patient Fasting: Y us Jim Hung MD LAB BLOOD ORDERABLES Final Resu lt [facility] ([facility]) [address] [place] [address], [facility] [address] [place] [address], * (ABNORMAL) Comprehensive Metabolic Panel (05/07/2025 10:32 AM EDT) [facility] Glucose 72 65 - 99 mg/dL [facility] BUN 13.0 6.0 - 20.0 mg/dL [facility] Creatinine 0.68 0.57 - 1.00 mg/dL [facility] EGFR Result 113.1 >60.0 mL/min/1.7 3 [facility] Comment: GFR Categories in Chronic Kidney Disease (CKD) GFR Category GFR (mL/min/1.73) Interpretation G1 90 or greater Normal or high (1) G2 60-89 Mild decrease (1) G3a 45-59 Mild to moderate decrease G3b 30-44 Moderate to severe decrease G4 15-29 Severe decrease G5 14 or less Kidney failure (1)In the absence of evidence of kidney disease, neither GFR category G1 or G2 fulfill the criteria for CKD. eGFR calculation 2020 CKD-EPI creatinine equation, which does not include race as a factor BUN/Creatinine Ratio 19.1 7.0 - 25.0 [facility] Sodium 138 136 - 145 mmol/L [facility] Potassium 4.0 3.5 - 5.2 mmol/L [facility] Chloride 102 98 - 107 mmol/L [facility] Total CO2 20.8(L) 22.0 - 29.0 mmol/L [facility] Calcium 9.6 8.6 - 10.5 mg/dL [facility] Total Protein 7.2 6.0 - 8.5 g/dL [facility] Albumin 4.5 3.5 - 5.2 g/dL [facility] Globulin 2.7 gm/dL [facility] A/G Ratio 1.7 g/dL [facility] Total Bilirubin 0.2 0.0 - 1.2 mg/dL [facility] Alkaline Phosphatase 90 39 - 117 U/L [facility] AST (SGOT) 14 1 - 32 U/L [facility] ALT (SGPT) 14 1 - 33 U/L [facility] Blood 05/07/2025 10:3 2 AM EDT 05/07/2025 Narrative [facility] ([facility]) - 05/08/2025 3:07 AM EDT Performed at: [address] [place] [address] [id number] Marketing Underwriter: Moshe Torres MD, Phone: [phone] Patient Fasting: Y us Jim Hung MD LAB BLOOD ORDERABLES Final Resu lt [facility] (AMBULATORY) [address] [place] [address], [facility] [address] [place] [address], * (ABNORMAL) CBC & Differential (05/07/2025 10:32 AM EDT) WBC 10.47 3.40 - 10.80 10*3/mm3 [facility] RBC 4.40 3.77 - 5.28 10*6/mm3 [facility] Hemoglobin 13.3 12.0 - 15.9 g/dL [facility] Hematocrit 40.5 34.0 - 46.6 % [facility] MCV 92.0 79.0 - 97.0 fL [facility] MCH 30.2 26.6 - 33.0 pg [facility] MCHC 32.8 31.5 - 35.7 g/dL [facility] RDW 13.1 12.3 - 15.4 % [facility] Platelets 242 140 - 450 10*3/mm3 [facility] Neutrophil Rel % 70.9 42.7 - 76.0 % [facility] Lymphocyte Rel % 18.1(L) 19.6 - 45.3 % [facility] Monocyte Rel % 6.9 5.0 - 12.0 % [facility] Eosinophil Rel % 3.2 0.3 - 6.2 % [facility] Basophil Rel % 0.4 0.0 - 1.5 % [facility] Neutrophils Absolute 7.43(H) 1.70 - 7.00 10*3/mm3 [facility] Lymphocytes Absolute 1.90 0.70 - 3.10 10*3/mm3 [facility] Monocytes Absolute 0.72 0.10 - 0.90 10*3/mm3 [facility] Eosinophils Absolute 0.33 0.00 - 0.40 10*3/mm3 [facility] Basophils Absolute 0.04 0.00 - 0.20 10*3/mm3 [facility] Immature Granulocyte Rel % 0.5 0.0 - 0.5 % [facility] Immature Grans Absolute 0.05 0.00 - 0.05 10*3/mm3 [facility] nRBC 0.0 0.0 - 0.2 /100 WBC [facility] Blood 05/07/2025 10:3 2 AM EDT 05/07/2025 Narrative [facility] ([facility]) - 05/08/2025 3:07 AM EDT Performed at: [address] [id number] Marketing Underwriter: Moshe Torres MD, Phone: [phone] Patient Fasting: Y us Jim Hung MD LAB BLOOD ORDERABLES Final Resu lt [facility] ([facility]) [address] [place] [address], [place] [phone] [facility] [address] [place] [address], [place] [phone] documented in this encounter Visit Diagnoses Diagnosis Acquired hypothyroidism- Primary Unspecified hypothyroidism Strep pharyngitis Insulin controlled gestational diabetes mellitus (GDM) in third trimester Screening mammogram for breast cancer documented in this encounter Care Teams Senior Paralegal Relationship Specialty Start Date End Date Jim Hung MD [address] [place] [address] PCP - General Family Medicine 06/07/16 documented as of this encounter
--- NOTE | 2025-05-11 13:00 | CT_ITS ---
FINAL REPORT TECHNIQUE: Thin section axial images were obtained from the lung bases to the pubic symphysis without IV contrast. Coronal reconstruction images were obtained from the axial data. Exam was performed using dose reduction technique. CLINICAL HISTORY: LLQ pain FINDINGS: There is no obstructing renal or ureteral stone. There is a nonobstructing right renal stone measuring 3 mm. There is no hydronephrosis or perinephric stranding. The gallbladder is present. The remaining unenhanced solid abdominal organs are unremarkable. There is no evidence of small bowel obstruction. The appendix is normal. There is a moderate to large amount of retained stool throughout the colon. The uterus and ovaries are unremarkable for age. GI tract is without acute abnormality. There is no lymphadenopathy or ascites. No acute osseous abnormality is identified. IMPRESSION: Nonobstructing right renal stone. No obstructing ureteral or ureteral stone. Reviewed, Interpreted and Dictated by Gabrielle Yarbrough MD Transcribed by Padmaja Long Authenticated and [facility]
--- OUTSIDE RECORDS SUMMARY | 2025-05-11 13:18 | XMS_ITS | Clinical Summary ---
Author Organization Healthcare Address [address] [place] [address] Care Team Providers Care Trains Dispatcher Supervisor Name Role Phone Unavailable Primary Care Provider Unavailabl e Social History Tobacco Use Types Packs/Day Years Used Date Smoking Tobacco: Every Day Alcohol Use Standard Drinks/Week Comments Yes 0 (1 standard drink = 0.6 oz pur e alcohol) Comments Unknown Sex and Gender Information Value Date Recorded Sex Assigned at Not on file Legal Sex Female 8:32 PM EDT Gender Identity Not on file Sexual Orientation Not on file Last Filed Vital Signs Vital Sign Reading Time Taken Comments Blood Pressure - - Pulse - - Temperature - - Respiratory Rate - - Oxygen Saturation - - Inhaled Oxygen Concentration - - Weight 80.7 kg (178 lb) 02/09/2011 2:19 PM EDT Height 162.6 cm (5' 4 ) 02/09/2011 2:19 PM EDT Body Mass Index 30.55 02/09/2011 2:19 PM EDT Plan of Treatment Not on file
--- OUTSIDE RECORDS SUMMARY | 2025-05-11 13:18 | XMS_ITS | Clinical Summary ---
Author Organization [facility] Address [address] [place] [address] Care Team Providers Care Pickling Grader Name Role Phone Jim Hung MD Primary Care Provider Allergies No known active allergies Medications vitamin D3 125 MCG (5000 UT) capsule capsule Take 1 capsule by mouth Daily. 2000 units Active tinidazole (TINDAMAX) 500 MG tablet Take 1 tablet by mouth Every 12 (Twelve) Hours. 09/26/19 24 Active Vit-Fe Fumarate-FA ( Vitamin) 27-0.8 MG tabletIndicatio ns:Less than 8 weeks gestation of Take 1 tablet by mouth Daily. 30 tablet 11 04/14/20 24 Active promethazine (PHENERGAN) 12.5 MG tablet Take 1 tablet by mouth 3 times a day. 04/29/20 24 Active pantoprazole (PROTONIX) 40 MG EC tablet Take 1 tablet by mouth Daily. 05/29/20 24 Active labetalol (NORMODYNE) 200 MG tablet Take 1 tablet by mouth Every 12 (Twelve) Hours. 06/21/20 24 Active Blood Glucose Monitoring Suppl (ONE TOUCH ULTRA 2) w/Device kit 10/05/19 25 Active OneTouch Ultra test strip 11/02/19 25 Active Lancets (OneTouch Delica Plus [id number]) misc 11/02/19 25 Active famotidine (PEPCID) 20 MG tablet Take 1 tablet by mouth Daily. 10/26/19 25 Active metFORMIN (GLUCOPHAGE) 500 MG tablet Take 1 tablet by mouth Every 12 (Twelve) Hours. 10/09/19 25 Active levothyroxine (SYNTHROID, LEVOTHROID) 200 MCG tablet Take 1 tablet by mouth Daily. 10/01/19 25 Active albuterol sulfate HFA 108 (90 Base) MCG/ACT inhalerIndicati ons:Mild intermittent asthma with acute exacerbation Inhale 2 puffs Every 4 (Four) Hours As Needed for Wheezing. 18 g 2 11/06/19 25 Active amoxicillin (AMOXIL) 500 MG capsuleIndicati ons:Strep pharyngitis Take 2 capsules by mouth 2 (Two) Times a Day. 28 capsule 05/07/20 25 Active Chlorcyclizine- Pseudoephed 25-60 MG tablet 1/2-1 po q 8 hours PRN 30 tablet 1 05/07/20 25 Active Insulin Pen Needle (Pen Twisp) 31G X 5 MM miscIndications :Gestational diabetes mellitus (GDM) in third trimester controlled on oral hypoglycemic drug Use 1 each 4 (Four) Times a Day. 100 each 2 11/04/19 25 2024 Discontinued(* Therapy completed) Insulin Glargine (LANTUS SOLOSTAR) 100 UNIT/ML injection penIndications: Gestational diabetes mellitus (GDM) in third trimester controlled on oral hypoglycemic drug Inject 15 Units under the skin into the appropriate area as directed Every Night. 15 mL 1 11/19/19 25 2024 Discontinued Active Problems Problem Noted Date Diagnosed Date Mild intermittent asthma with acute exacerbation 11/06/2024 Maternal chronic hypertension in third trimester 11/03/2024 Assessment & Plan (11/03/2024 9:59 AM EST): Patient referred with a diagnosis of chronic hypertension. Patient's blood pressure in our office is 103/60 she is currently taking 200 mg of labetalol twice daily. She is already receiving twice weekly testing. At the current time no alterations are necessary for her medication. If she requires any increased medication I would assume that this is superimposed preeclampsia and proceed with delivery. Patient is already having twice-weekly testing and we would continue this until delivery. 11/03/2024 Gestational diabetes mellitu s (GDM) in third trimester controlled on oral hypoglycemic drug 11/03/2024 Assessment & Plan (11/03/2024 9:58 AM EST): Patient recently diagnosed with gestational diabetes. Shorts that she is trying to follow the diet as well as possible she is checking her fingersticks 4 times a day she reports that her fastings are generally in the 115 to 120 mg percent range. Most prandial dose are in the 1 20-1 60 range. Patient is taking metformin twice a day. Ultrasound today demonstrates a normally grown fetus but with a large abdominal circumference. No abnormalities are seen. Amniotic fluid volume and umbilical artery Dopplers are normal. BPP is 8 out of 8. Patient appears to have gestational diabetes that will require at least Lantus at bedtime to control her fastings. We have provided a prescription for Lantus autoinjector and instructed the patient on using 10 units at bedtime. Patient has been hooked in with our diabetes nurse and we will evaluate her sugars weekly until delivery. Patient was already begun on twice-weekly testing at her local office and we would recommend discontinue until delivery. Delivery timing would be at approximately 38 weeks gestation unless her sugars become markedly [id number]. Patient was counseled extensively regarding movement will contact her provider immediately if she notices any decreased movement. Multigravida of advanced maternal age in third t rimester 11/03/2024 Assessment & Plan (11/03/2024 9:43 AM EST): The patient will be 39 years old at the time of delivery. She was quoted the following age-related risks at term: Risk for Down syndrome 1 in 100, risk for any chromosomal abnormality 1 in 60. Options in genetic testing and genetic screening were discussed with the patient. I noted an option of genetic testing in the 2nd trimester of transabdominal amniocentesis for the determination of chromosomal complement as well as amniotic fluid alpha-fetoprotein for the evaluation of a open neural tube defect. A procedure-related loss rate of 1 in 500 would be quoted with midtrimester amniocentesis. I also discussed the option of analysis of cell-free DNA in maternal blood. I noted this directed analysis measures the relative proportion of chromosomes with the detection rate of Down syndrome quoted as 99% with a false positive rate of less than .1%. Screening for other aneuploidies is also possible but the detection rate is lower with cell-free DNA technology. I then discussed the clinical utility of ultrasound and/or biochemical screening for the detection of aneuploidy as well as open neural tube defects. Further, I have reviewed her self-reported family history and made suggestions as appropriate based on my review. Patient is already had a cell free DNA screen returned as low risk. We discussed that this significantly lowers the risk of chromosomal abnormalities but does not eliminate risk. We discussed amniocentesis again. The procedure was explained and risks including risk of loss were outlined. Patient declines further genetic testing at this late gestational age. Biceps tendinitis of right upper extremity 11/09 Impingement syndrome of right shoulder 3 Bursitis of right shoulder 11/09/2022 Primary insomnia 05/12/2021 Dependence on nicotine from cigarettes 0 Vitamin D deficiency 04/07/2018 RLS (restless legs syndrome) 07/11/2016 Congenital hypothyroidism 07/11/2016 Anxiety and depression 10/12/2014 Resolved Problems Problem Noted Date Diagnosed Date Resolved Date Rotator cuff injury, right, initial encounter 04/09/20 23 08/23/2023 Right shoulder pain 11/09/2022 11/06/19 25 Encounters Date Type Department Care Team Description 05/09/2025 Results Follow-Up [facility] [address] [phone] Jim Hung MD 05/07/2025 10:00 AM EDT Office Visit [facility] [address] [phone] Jim Hung MD Acquired hypothyroidism (Primary Dx); Strep pharyngitis; Insulin controlled gestational diabetes mellitus (GDM) in third trimester; Screening mammogram for breast cancer 05/07/2025 Travel from Last 3 Months Immunizations Immunization Administration Dates Next Due Flu Vaccine Quad PF 6-35MO 09/20/2017 Flu Vaccine Quad PF >36MO 06/06/2020 Fluzone (or Fluarix & Flulaval for VFC) >6mos ,09/20/2017 Hep B, Adolescent or Pediatric 01/19/2015 Hep B, Unspecified 01/19/2015 Influenza, Unspecified 06/20/2018 PPD Test 09/20/2017,01/19/2015 Tdap 02/24/2020,10/01/2017 Family History Medical History Relation Name Comments Broken bones Father Eliezer Samaniego Kidney failure Father Eliezer Samaniego Relation Name Status Comments Father Eliezer Samaniego Alive Mother Alive Social History Tobacco Use Types Packs/Day Years Used Date Smoking Tobacco: Some Days Electronic Cigarette Smokeless Tobacco: Never Tobacco Cessation:Ready to Q uit: Not Asked; Counseling Given: Not Answered Alcohol Use Standard Drinks/Week Comments Not Currently [...] Orientation Straight 04/30/2025 8: 26 AM EDT Last Filed Vital Signs Vital Sign Reading [...] Mass Index 38.75 05/07/2025 10:06 AM EDT Plan of Treatment Health Maintenance Due Date Last Done Comments Annual Gynecologic Pelvic an d Breast Exam 1984 Pneumococcal Vaccine 0-49 (1 of 2 - PCV) 2003 ANNUAL PHYSICAL 06/07/2016 PAP SMEAR 11/18/2021 11/18/2018 COVID-19 Vaccine (2023-2 5 season) 2024 MAMMOGRAM 2024 INFLUENZA VACCINE 06/16/2025 06/06/2020, , 06/20/2018, Additional history exists TDAP/TD VACCINES (4 - Td or Tdap) 10/19/2034 10/19/2024, 02/24/2020, 10/01/2017 HEPATITIS C SCREENING Completed 12/30/2019 , 12/30/2019, 07/15/2018 Procedures Procedure Name Priority Date/Time Associated Diagnosis Comments CBC AND DIFFERENTIAL Routine 05/07/2025 10:32 AM EDT Insulin controlled gestational diabetes mellitus (GDM) in third trimester TSH+FREE T4 Routine 05/07/2025 10:32 AM EDT Acquired hypothyroidism HEMOGLOBIN A1C Routine 05/07/2025 10:32 AM EDT Insulin controlled gestational diabetes mellitus (GDM) in third trimester COMPREHENSIVE METABOLIC PANEL Routine 05/07/2025 10:32 AM EDT Insulin controlled gestational diabetes mellitus (GDM) in third trimester from Last 3 Months Results * TSH+Free T4 (05/07/2025 10:32 AM EDT) TSH 2.700 0.270 - 4.200 uIU/mL [facility] Free T4 1.30 0.92 - 1.68 ng/dL [facility] Blood 05/07/2025 10:3 2 AM EDT 05/07/2025 Narrative [facility]) - 05/08/2025 3:07 AM EDT Performed at: [address] [place] [id number] Imaging Aide: Moshe Torres MD, Phone: [phone] Patient Fasting: Y us Jim Hung MD LAB BLOOD ORDERABLES Final Resu lt [facility] ([facility]) [address] [place] [address], [place] [phone] [facility] [address] [place] [address], [place] [phone] * (ABNORMAL) CBC & Differential (05/07/2025 10:32 AM EDT) [facility] WBC 10.47 3.40 - 10.80 10*3/mm3 [facility] [...] - 05/08/2025 3:07 AM EDT Performed at: [address] [place] [address] [address] [place], [place] [id number] Imaging Aide: Moshe Torres MD, Phone: [phone] Patient Fasting: Y us Jim Hung MD LAB BLOOD ORDERABLES Final Resu lt Performing Organization Address City/[facility]/ZIP Co de Phone Number [facility] [address] [place] [address], [facility] [address] [place] [address], * Hemoglobin A1c (05/07/2025 10:32 AM EDT) Hemoglobin A1C 5.30 4.80 - 5.60 % [facility] Comment: Hemoglobin A1C Ranges: Increased Risk for Diabetes 5.7% to 6.4% Diabetes >= 6.5% Diabetic Goal < 7.0% Blood 05/07/2025 10:3 2 AM EDT 05/07/2025 Narrative [facility]) - 05/08/2025 3:07 AM EDT Performed at: [address] [place] [address] [address] [place], [place] [id number] Imaging Aide: Moshe Torres MD, Phone: [phone] Patient Fasting: Y us Jim Hung MD LAB BLOOD ORDERABLES Final Resu lt Performing Organization Address City/[facility]/ZIP Co de Phone Number [facility] [address] [place] [address], [facility] [address] [place] [address], [place] [phone] * (ABNORMAL) Comprehensive Metabolic Panel (05/07/2025 10:32 AM EDT) Glucose 72 65 - 99 mg/dL [facility] [...] 05/08/2025 3:07 AM EDT Performed at: [address] [id number] Imaging Aide: Moshe Torres MD, Phone: [phone] Patient Fasting: Y us Jim Hung MD LAB BLOOD ORDERABLES Final Resu lt [facility]) [address] [place] [address], [facility] [address] [place] [address], [place] [phone] from Last 3 Months Insurance [employer] MEDICAID [place] Care Teams Pickling Grader Relationship Specialty Start Date End Date Jim Hung MD [address] [place] [address] PCP - General Family Medicine 06/07/16
--- OUTSIDE RECORDS SUMMARY | 2025-05-11 13:18 | XMS_ITS | Encounter Summary ---
Author Organization [facility] Address [address] [place] [address] Care Team Providers Care Harness Racing Handicapper Name Role Phone Jim Hung MD Primary Care Provider Encounter Details Date Type Department Care Team (Latest Contact Info) Description 05/07/2025 Travel Social History Tobacco Use Types Packs/Day Years [...] AM EDT documented as of this encounter Plan of Treatment Not on file documented as of this encounter Visit Diagnoses Not on filedocumented in this encounter Care Teams Harness Racing Handicapper Relationship Specialty Start Date End Date Jim Hung MD [address] [place] [id number] PCP - General Family Medicine 06/07/16 documented as of this encounter
--- OUTSIDE RECORDS SUMMARY | 2025-05-11 13:18 | XMS_ITS | Encounter Summary ---
[facility] Organization [facility] Address [address] [place] [address] Care Team Providers Care Clinical Education Specialist Name Role Phone Jim Hung MD Primary Care Provider [phone] Encounter Details Date Type Department Care Team (Late st Contact Info) Description 05/09/2025 Results Follow-Up [facility] [address] [place] [address] Jim Hung MD [address] [place] [address] Social History Tobacco Use Types Packs/Day Years [...] on filedocumented in this encounter Care Teams Clinical Education Specialist Relationship Specialty Start Date End Date Jim Hung MD [address] [place] [address] PCP - General Family Medicine 06/07/16 documented as of this encounter
== END 2025-05-11 23:59 | disposition home or self-care (01) ==
LOC: RAD 13:04
PROVIDERS: PCP Family Medicine; Visit Provider Obstetrics & Gynecology
DX: N20.0 Calculus of kidney (principal); R19.00 Intra-abdominal and pelvic swelling, mass and lump, unspecified site; R10.32 Left lower quadrant pain
CPT/HCPCS: 74176